=== PATIENT | female | born 1935 | race Caucasian/White ===

== ENCOUNTER 2017-12-08 10:29 | Observation (INO) | payer OTHER ==
[~2017-12-08] VITALS: Ht 160 cm; Wt 71.6 kg
[~2017-12-08 10:29] MED LIST: ASPCH81X PO; CHOL100010 PO; FAMO20TA11 PO; LEVO112T4 PO; OMEG10007 PO; PANT1TAB3 PO
[2017-12-08] MEDS ORDERED: ASPIRIN 324 MG CHEW ONE (10:51)
[2017-12-08] MEDS ORDERED: NITROGLYCERIN 2% OINTMENT 30GM TUBE EXT ONE (10:51)
[2017-12-08 11:08] LABS: BASO % 0.5 %; BASO ABS # 0.03 K/uL (0-0.2); EOS % 2.2 %; EOS ABS # 0.12 K/uL (0-0.5); HEMOGLOBIN 14.5 g/dL (12.0-16.0); IG# 0.01 K/uL (0.00-0.02); LYMPH % 31.1 %; LYMPH ABS # 1.73 K/uL (1.2-3.4); MEAN CELL VOLUME 86.6 fL (80-100); MEAN CORPUSCULAR HEMOGLOBIN 29.9 pg (25-34); MEAN CORPUSCULAR HGB CONC 34.5 g/dl (32-36); MEAN PLATELET VOLUME 9.4 fL (7.4-10.4); MONO % 6.5 %; MONO ABS # 0.36 K/uL (0.11-0.59); NEUT % 59.5 %; NEUT ABS # 3.31 K/uL (1.4-6.5); PLATELET COUNT 220 K/uL (130-400); RED CELL DISTRIBUTION WIDTH CV 13.6 % (11.5-14.5); RED CELL DISTRIBUTION WIDTH SD 43.1 fL (36.4-46.3); WHITE BLOOD COUNT 5.56 K/uL (4.8-10.8)
[2017-12-08 11:15] LABS: ALBUMIN 3.9 gm/dl (3.4-5.0); ALT/SGPT 26 U/L (12-78); AST/SGOT 18 U/L (15-37); BLOOD UREA NITROGEN 18 mg/dl (7-18); CALCIUM 9.5 mg/dl (8.5-10.1); CARBON DIOXIDE 29 mmol/L (21-32); CREATININE 0.88 mg/dl (0.60-1.20); GLUCOSE 97 mg/dl (70-99); INR 0.9 (0.9-1.1); POTASSIUM 4.4 mmol/L (3.5-5.1); PTT PATIENT 24.4 SECONDS (21.0-31.0); SODIUM 139 mmol/L (136-145)
[2017-12-08 11:26] LABS: ALKALINE PHOSPHATASE 79 U/L (45-117); CKMB 2.6 ng/ml (0.5-3.6); TOTAL PROTEIN 7.8 gm/dl (6.4-8.2)
--- NOTE | 2017-12-08 11:27 | DIAGNOSTIC IMAGING REPORT ---
CHEST ONE VIEW PORTABLE CLINICAL HISTORY: Atypical chest pain COMPARISON STUDY: 05/07/2015 FINDINGS: The heart is normal in size. There is elevation the right hemidiaphragm. There is no failure. There is no lobar consolidation. There are no pleural effusions. There are linear bilateral atelectatic changes.[ IMPRESSION: Elevation right hemidiaphragm. No evidence of acute parenchymal consolidation. No evidence of failure. Electronically signed by: Benny Mullins M.D. 12/08/2017 11:26 AM Dictated Date/Time: 12/08/2017 11:25 AM
[2017-12-08] MEDS ORDERED: AMLODIPINE BESYLATE 5 MG TAB PO ONE (13:20)
[2017-12-08] MEDS ORDERED: FAMOTIDINE 20 MG TAB PO PRN (13:30)
[2017-12-08] MEDS ORDERED: ONDANSETRON INJ 2 MG/ML 2 ML VIAL IV PRN (13:30)
[2017-12-08] MEDS ORDERED: ACETAMINOPHEN 325 MG TAB PO PRN (13:30)
[2017-12-08] MEDS ORDERED: MoRPHine SULFATE 2 MG/ML CARP IV PRN (13:30)
[2017-12-08] MEDS ORDERED: POLYETHYLENE (MIRALAX) 17 GM PACK PO PRN (13:30)
--- NOTE | 2017-12-08 13:41 | History and Physical ---
History & Physical Date & Time of Service: Dec 08, 2017 at 13:30 Chief Complaint: Chest Pains Primary Care Physician: Ron Bourne D.O. History of Present Illness Source: patient, family, clinic records, hospital records 82-year-old female with no history of heart disease, non-smoker, no history of high blood pressure presents with acute chest pain while sitting in [place] today. Patient states the chest pain is centralized with radiation to her neck and lower jaw on the left side. The pain began when she was going from a standing to sitting position and lasted about 20-30 minutes while sitting there. She states the pain was associated with sweating but was not associated with nausea, palpitations, lightheadedness, numbness, or shortness of breath. She reports infrequent substernal chest pain that is not provoked by exertion or other known cause that occurs about once a month on average and lasts only a minute at a time with spontaneous resolution. She is active exercising daily and does not have any issues of chest pain or shortness of breath with those activities. She reports in the last 2 weeks she has seen blood pressure numbers that are elevated. She first checked with her 's blood pressure cuff and noticed her blood pressure was in the 180s, She then checked at [facility] and was again in the 180s, and then was checked at an office where her blood pressure was in the 140s which she states was high for her. She has no history of high blood pressure or taking any medications for this. She otherwise has no other symptoms including headaches fevers chills cough sore throat visual changes or other issues. Past Medical/Surgical History Medical Problems: (1) GERD (gastroesophageal reflux disease) Status: Chronic (2) Hypothyroidism Status: Chronic (3) Osteoporosis Status: Chronic Family History Patient reports no known family medical history. Social History Smoking Status: Never Smoker Smokeless Tobacco Use: No Alcohol Use: none Drug Use: none Marital Status: Housing status: lives with significant other Occupational Status: retired Immunizations History of Influenza Vaccine: Yes (06/10/17) Influenza Vaccine Date: Jun 10, 2017 History of Tetanus Vaccine?: Yes Tetanus Immunization Date: Dec 23, 2007 History of Pneumococcal: Yes Pneumococcal Date: Nov 26, 2016 History of Hepatitis B Vaccine: Unknown Allergies Coded Allergies: Ergotamine (Verified Allergy, Unknown, VIOLENT HEADACHE, 12/08/17) Sulfa Drugs (Verified Allergy, Unknown, "SULFA" ALLERGY REPORTED BY [facility]/ [facility], 12/08/17) Home Medications Scheduled Aspirin (Aspirin Chewable), 81 MG PO QPM Cholecalciferol (Vitamin D), 1,000 INTER.UNIT PO QPM Levothyroxine Sodium (Levothyroxine Sodium), 1 TAB PO QAM Pantoprazole (Protonix), 40 MG PO QAM Scheduled PRN Famotidine (Pepcid), 10 MG PO QAM PRN for heartburn Review of Systems At least 10 systems were reviewed and negative except as indicated in HPI above Physical Exam Vital Signs Date Time Temp Pulse Resp B/P (MAP) Pulse Ox O2 Delivery O2 Flow Rate FiO2 12/08/17 13:06 60 12/08/17 12:56 57 20 154/92 99 Nasal Cannula 2.0 12/08/17 11:37 55 16 167/86 97 Room Air 12/08/17 11:13 99 Room Air 12/08/17 11:13 99 Room Air 12/08/17 10:53 65 16 203/77 99 Nasal Cannula 2.0 12/08/17 10:47 61 12/08/17 10:31 36.6 66 16 196/90 95 Room Air General Appearance: WD/WN, no apparent distress Head: normocephalic, atraumatic Eyes: normal inspection, PERRL, EOMI, sclerae normal, funduscopic exam normal ENT: normal ENT inspection, hearing grossly normal, pharynx normal Neck: supple, no adenopathy, no JVD, no carotid bruits, trachea midline Respiratory/Chest: lungs clear, normal breath sounds, no respiratory distress, no accessory muscle use, + pertinent finding (Tenderness to palpation along left parasternal border) Cardiovascular: regular rate, rhythm, no edema, no gallop, no murmur, normal peripheral pulses Abdomen/GI: normal bowel sounds, non tender, soft, no organomegaly Back: normal inspection Extremities/Musculoskelatal: normal inspection, no pedal edema, normal range of motion 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, no motor/sensory deficits, alert, normal mood/affect, oriented x 3 Skin: normal color, warm/dry, no rash Diagnostics Laboratory Results 12/08/17 10:40 Red Blood Count 4.85, Mean Corpuscular Volume 86.6, Mean Corpuscular Hemoglobin 29.9, Mean Corpuscular Hemoglobin Concent 34.5, Mean Platelet Volume 9.4, Neutrophils (%) (Auto) 59.5, Lymphocytes (%) (Auto) 31.1, Monocytes (%) (Auto) 6.5, Eosinophils (%) (Auto) 2.2, Basophils (%) (Auto) 0.5, Neutrophils # (Auto) 3.31, Lymphocytes # (Auto) 1.73, Monocytes # (Auto) 0.36, Eosinophils # (Auto) 0.12, Basophils # (Auto) 0.03 12/08/17 10:40 Test 12/08/17 10:40 White Blood Count 5.56 K/uL (4.8-10.8) Red Blood Count 4.85 M/uL (4.2-5.4) Hemoglobin 14.5 g/dL (12.0-16.0) Hematocrit 42.0 % (37-47) Mean Corpuscular Volume 86.6 fL (80-100) Mean Corpuscular Hemoglobin 29.9 pg (25-34) Mean Corpuscular Hemoglobin Concent 34.5 g/dl (32-36) Platelet Count 220 K/uL (130-400) Mean Platelet Volume 9.4 fL (7.4-10.4) Neutrophils (%) (Auto) 59.5 % Lymphocytes (%) (Auto) 31.1 % Monocytes (%) (Auto) 6.5 % Eosinophils (%) (Auto) 2.2 % Basophils (%) (Auto) 0.5 % Neutrophils # (Auto) 3.31 K/uL (1.4-6.5) Lymphocytes # (Auto) 1.73 K/uL (1.2-3.4) Monocytes # (Auto) 0.36 K/uL (0.11-0.59) Eosinophils # (Auto) 0.12 K/uL (0-0.5) Basophils # (Auto) 0.03 K/uL (0-0.2) RDW Standard Deviation 43.1 fL (36.4-46.3) RDW Coefficient of Variation 13.6 % (11.5-14.5) Immature Granulocyte % (Auto) 0.2 % Immature Granulocyte # (Auto) 0.01 K/uL (0.00-0.02) Prothrombin Time 9.7 SECONDS (9.0-12.0) Prothromb Time International Ratio 0.9 (0.9-1.1) Activated Partial Thromboplast Time 24.4 SECONDS (21.0-31.0) Partial Thromboplastin Ratio 0.9 Anion Gap 5.0 mmol/L (3-11) Est Creatinine Clear Calc Drug Dose 46.3 ml/min Estimated GFR () 70.4 Estimated GFR (Non- 60.8 BUN/Creatinine Ratio 20.5 (10-20) Calcium Level 9.5 mg/dl (8.5-10.1) Magnesium Level 2.1 mg/dl (1.8-2.4) Total Bilirubin 0.5 mg/dl (0.2-1) Direct Bilirubin 0.1 mg/dl (0-0.2) Aspartate Amino Transf (AST/SGOT) 18 U/L (15-37) Alanine Aminotransferase (ALT/SGPT) 26 U/L (12-78) Alkaline Phosphatase 79 U/L (45-117) Total Creatine Kinase 113 U/L (26-192) Creatine Kinase MB 2.6 ng/ml (0.5-3.6) Creatine Kinase MB Ratio 2.3 (0-3.0) Troponin I < 0.015 ng/ml (0-0.045) Total Protein 7.8 gm/dl (6.4-8.2) Albumin 3.9 gm/dl (3.4-5.0) Thyroid Stimulating Hormone (TSH) 1.950 uIu/ml (0.300-4.500) Results Past 24 Hours Test 12/08/17 10:40 Range/Units White Blood Count 5.56 4.8-10.8 K/uL Red Blood Count 4.85 4.2-5.4 M/uL Hemoglobin 14.5 12.0-16.0 g/dL Hematocrit 42.0 37-47 % Mean Corpuscular Volume 86.6 80-100 fL Mean Corpuscular Hemoglobin 29.9 25-34 pg Mean Corpuscular Hemoglobin Concent 34.5 32-36 g/dl Platelet Count 220 130-400 K/uL Mean Platelet Volume 9.4 7.4-10.4 fL Neutrophils (%) (Auto) 59.5 % Lymphocytes (%) (Auto) 31.1 % Monocytes (%) (Auto) 6.5 % Eosinophils (%) (Auto) 2.2 % Basophils (%) (Auto) 0.5 % Neutrophils # (Auto) 3.31 1.4-6.5 K/uL Lymphocytes # (Auto) 1.73 1.2-3.4 K/uL Monocytes # (Auto) 0.36 0.11-0.59 K/uL Eosinophils # (Auto) 0.12 0-0.5 K/uL Basophils # (Auto) 0.03 0-0.2 K/uL RDW Standard Deviation 43.1 36.4-46.3 fL RDW Coefficient of Variation 13.6 11.5-14.5 % Immature Granulocyte % (Auto) 0.2 % Immature Granulocyte # (Auto) 0.01 0.00-0.02 K/uL Prothrombin Time 9.7 9.0-12.0 SECONDS Prothromb Time International Ratio 0.9 0.9-1.1 Activated Partial Thromboplast Time 24.4 21.0-31.0 SECONDS Partial Thromboplastin Ratio 0.9 Sodium Level 139 136-145 mmol/L Potassium Level 4.4 3.5-5.1 mmol/L Chloride Level 105 98-107 mmol/L Carbon Dioxide Level 29 21-32 mmol/L Anion Gap 5.0 3-11 mmol/L Blood Urea Nitrogen 18 7-18 mg/dl Creatinine 0.88 0.60-1.20 mg/dl Est Creatinine Clear Calc Drug Dose 46.3 ml/min Estimated GFR () 70.4 Estimated GFR (Non- 60.8 BUN/Creatinine Ratio 20.5 10-20 Random Glucose 97 70-99 mg/dl Calcium Level 9.5 8.5-10.1 mg/dl Magnesium Level 2.1 1.8-2.4 mg/dl Total Bilirubin 0.5 0.2-1 mg/dl Direct Bilirubin 0.1 0-0.2 mg/dl Aspartate Amino Transf (AST/SGOT) 18 15-37 U/L Alanine Aminotransferase (ALT/SGPT) 26 12-78 U/L Alkaline Phosphatase 79 45-117 U/L Total Creatine Kinase 113 26-192 U/L Creatine Kinase MB 2.6 0.5-3.6 ng/ml Creatine Kinase MB Ratio 2.3 0-3.0 Troponin I < 0.015 0-0.045 ng/ml Total Protein 7.8 6.4-8.2 gm/dl Albumin 3.9 3.4-5.0 gm/dl Thyroid Stimulating Hormone (TSH) 1.950 0.300-4.500 uIu/ml Diagnostic Radiology CHEST ONE VIEW PORTABLE CLINICAL HISTORY: Atypical chest pain COMPARISON STUDY: 05/07/2015 FINDINGS: The heart is normal in size. There is elevation the right hemidiaphragm. There is no failure. There is no lobar consolidation. There are no pleural effusions. There are linear bilateral atelectatic changes.[ IMPRESSION: Elevation right hemidiaphragm. No evidence of acute parenchymal consolidation. No evidence of failure. EKG SR 63 Normal EKG Impression Assessment and Plan 82-year-old female with risk factors for CAD including new onset blood pressure and age presents with chest pain. 1. Chest pain-likely secondary to new onset hypertension. Will trend serial enzymes to rule out ACS. Will consult cardiology to assist with need for risk stratification. Will start Norvasc daily for blood pressure control. Of note patient did receive Nitropaste in the ER with improvement in her blood pressure which was originally in the 180-2 systolic. The patient's chest pain had resolved prior to arrival in the ER. She also did receive aspirin 325. Of note patient's chest is also tender to palpation on exam some musculoskeletal etiology is also a possibility. 2. Hypertension-multiple blood pressure readings reported in the 180 range, however, this has not been evaluated fully in the office. Will start Norvasc 10 mg daily for now and have close follow-up with primary care doctor on discharge. 3. Hypothyroidism-continue levothyroxine 4. GERD-continue Protonix daily with Pepcid as needed breakthrough 5. Osteoporosis DVT prophylaxis-Lovenox Full code Disposition-to telemetry [facility], DO [facility] Resuscitation Status VTE Prophylaxis Will order VTE Prophylaxis: Yes
--- NOTE | 2017-12-08 14:23 | EMERGENCY ROOM VISIT NOTE ---
History Report prepared by Khushbu: Briana Dominguez Under the Supervision of: Dr. Chema Heath M.D. 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 The patient was sitting in temple when she started having the pain. The pain radiated up in to her jaw. She felt diaphoretic with the pain. At worst, her pain was a 2/10 in severity. It lasted for 20-30 minutes before resolving on its own. She has had occasional sensations in her chest in the past, but never this pain. She is currently feeling well. She notes that her blood pressure has been high over the last couple of months. She did not take any aspirin today. Pt denies LOC, headache, fevers, chills, visual changes, neck pain, breathing difficulties, nausea, vomiting, abdominal pain, back pain, melena, hematochezia, urinary symptoms, numbness, weakness, lymphadenopathy, rash, or other complaints. Source of History: patient Onset: CERTIFIED REHABILITATION COUNSELOR Position: chest Symptom Intensity: 2/10 Timing: other (episodic) Associated Symptoms: + diaphoresis Note: Pt reports jaw pain. Review of Systems See HPI for pertinent positives and negatives. A total of ten systems were reviewed and were otherwise negative. Past Medical & Surgical Medical Problems: (1) Chest pain (2) GERD (gastroesophageal reflux disease) (3) Hypothyroidism (4) Osteoporosis Family History Patient reports no known family medical history. Social History Smoking Status: Never Smoker Marital Status: Housing Status: lives with family Occupation Status: retired Current/Historical Medications Scheduled Aspirin (Aspirin Chewable), 81 MG PO QPM Cholecalciferol (Vitamin D), 1,000 INTER.UNIT PO QPM Levothyroxine Sodium (Levothyroxine Sodium), 1 TAB PO QAM Pantoprazole (Protonix), 40 MG PO QAM Scheduled PRN Famotidine (Pepcid), 10 MG PO QAM PRN for heartburn Allergies Coded Allergies: Ergotamine (Verified Allergy, Unknown, VIOLENT HEADACHE, 12/08/17) Sulfa Drugs (Verified Allergy, Unknown, "SULFA" ALLERGY REPORTED BY [facility]/ [facility], 12/08/17) Physical Exam Vital Signs Date Time Temp Pulse Resp B/P (MAP) Pulse Ox O2 Delivery O2 Flow Rate FiO2 12/08/17 13:06 60 12/08/17 12:56 57 20 154/92 99 Nasal Cannula 2.0 12/08/17 11:37 55 16 167/86 97 Room Air 12/08/17 11:13 99 Room Air 12/08/17 11:13 99 Room Air 12/08/17 10:53 65 16 203/77 99 Nasal Cannula 2.0 12/08/17 10:47 61 12/08/17 10:31 36.6 66 16 196/90 95 Room Air Physical Exam GENERAL: Awake, alert, well-appearing, in no distress HENT: Normocephalic, atraumatic. Oropharynx unremarkable. EYES: Normal conjunctiva. Sclera non-icteric. NECK: Supple. No nuchal rigidity. FROM. No masses. RESPIRATORY: Clear to auscultation. No wheezes. No rales. Normal respiratory effort. CARDIAC: Normal rate. Normal rhythm. No murmurs. No rubs. Extremities warm and well perfused. Pulses equal. No JVD. GI: Soft, non-distended. No tenderness to palpation. No rebound or guarding. No masses. RECTAL: Deferred. MUSCULOSKELETAL: Atraumatic. Chest examination reveals no tenderness. The back is symmetrical on inspection without obvious abnormality. There is no CVA tenderness to palpation. No joint edema. LOWER EXTREMITIES: Calves are equal size bilaterally and non-tender. No edema. No discoloration. NEURO: Normal sensorium. No sensory or motor deficits noted. SKIN: No rash or jaundice noted. Medical Decision & Procedures ER Provider Diagnostic Interpretation: Radiology results as stated below per my review and radiologist interpretation: CHEST ONE VIEW PORTABLE CLINICAL HISTORY: Atypical chest pain COMPARISON STUDY: 05/07/2015 FINDINGS: The heart is normal in size. There is elevation the right hemidiaphragm. There is no failure. There is no lobar consolidation. There are no pleural effusions. There are linear bilateral atelectatic changes.[ IMPRESSION: Elevation right hemidiaphragm. No evidence of acute parenchymal consolidation. No evidence of failure. Electronically signed by: Benny Mullins M.D. 12/08/2017 11:26 AM Dictated Date/Time: 12/08/2017 11:25 AM Laboratory Results 12/08/17 10:40 Red Blood Count 4.85, Mean Corpuscular Volume 86.6, Mean Corpuscular Hemoglobin 29.9, Mean Corpuscular Hemoglobin Concent 34.5, Mean Platelet Volume 9.4, Neutrophils (%) (Auto) 59.5, Lymphocytes (%) (Auto) 31.1, Monocytes (%) (Auto) 6.5, Eosinophils (%) (Auto) 2.2, Basophils (%) (Auto) 0.5, Neutrophils # (Auto) 3.31, Lymphocytes # (Auto) 1.73, Monocytes # (Auto) 0.36, Eosinophils # (Auto) 0.12, Basophils # (Auto) 0.03 12/08/17 10:40 Test 12/08/17 10:40 White Blood Count 5.56 K/uL (4.8-10.8) Red Blood Count 4.85 M/uL (4.2-5.4) Hemoglobin 14.5 g/dL (12.0-16.0) Hematocrit 42.0 % (37-47) Mean Corpuscular Volume 86.6 fL (80-100) Mean Corpuscular Hemoglobin 29.9 pg (25-34) Mean Corpuscular Hemoglobin Concent 34.5 g/dl (32-36) Platelet Count 220 K/uL (130-400) Mean Platelet Volume 9.4 fL (7.4-10.4) Neutrophils (%) (Auto) 59.5 % Lymphocytes (%) (Auto) 31.1 % Monocytes (%) (Auto) 6.5 % Eosinophils (%) (Auto) 2.2 % Basophils (%) (Auto) 0.5 % Neutrophils # (Auto) 3.31 K/uL (1.4-6.5) Lymphocytes # (Auto) 1.73 K/uL (1.2-3.4) Monocytes # (Auto) 0.36 K/uL (0.11-0.59) Eosinophils # (Auto) 0.12 K/uL (0-0.5) Basophils # (Auto) 0.03 K/uL (0-0.2) RDW Standard Deviation 43.1 fL (36.4-46.3) RDW Coefficient of Variation 13.6 % (11.5-14.5) Immature Granulocyte % (Auto) 0.2 % Immature Granulocyte # (Auto) 0.01 K/uL (0.00-0.02) Prothrombin Time 9.7 SECONDS (9.0-12.0) Prothromb Time International Ratio 0.9 (0.9-1.1) Activated Partial Thromboplast Time 24.4 SECONDS (21.0-31.0) Partial Thromboplastin Ratio 0.9 Anion Gap 5.0 mmol/L (3-11) Est Creatinine Clear Calc Drug Dose 46.3 ml/min Estimated GFR () 70.4 Estimated GFR (Non- 60.8 BUN/Creatinine Ratio 20.5 (10-20) Calcium Level 9.5 mg/dl (8.5-10.1) Magnesium Level 2.1 mg/dl (1.8-2.4) Total Bilirubin 0.5 mg/dl (0.2-1) Direct Bilirubin 0.1 mg/dl (0-0.2) Aspartate Amino Transf (AST/SGOT) 18 U/L (15-37) Alanine Aminotransferase (ALT/SGPT) 26 U/L (12-78) Alkaline Phosphatase 79 U/L (45-117) Total Creatine Kinase 113 U/L (26-192) Creatine Kinase MB 2.6 ng/ml (0.5-3.6) Creatine Kinase MB Ratio 2.3 (0-3.0) Troponin I < 0.015 ng/ml (0-0.045) Total Protein 7.8 gm/dl (6.4-8.2) Albumin 3.9 gm/dl (3.4-5.0) Thyroid Stimulating Hormone (TSH) 1.950 uIu/ml (0.300-4.500) Laboratory results reviewed by me Medications Administered Medications (Trade) Dose Ordered Sig/Brad Route Start Time Stop Time Status Last Admin Dose Admin Nitroglycerin (Nitroglycerin 2% Oint) 18 inch STK-MED ONCE EXT 12/08/17 10:51 12/08/17 10:52 DC 12/08/17 12:18 1 INCH Aspirin (Aspirin Chew) 324 mg STK-MED ONCE .ROUTE 12/08/17 10:51 12/08/17 10:52 DC 12/08/17 12:18 324 MG ECG Per My Interpretation Indication: chest pain Rate (beats per minute): 63 Rhythm: sinus rhythm Findings: nonspecific-ST abn, no ectopy, other (LVH) ED Course 1051: Aspirin 324 mg PO, Nitroglycerin 1 inch EXT. 1054: The patient was evaluated in room A10. A complete history and physical exam was performed. 1233: Upon reexamination, the patient was pain free. I discussed the test results and treatment plan with her. The patient will be evaluated for further management. 1251: I discussed the patient's case with Dylan Yousif. The patient will be evaluated for further treatment and disposition. Medical Decision Prior records/ancillary studies reviewed. Triage Nursing notes reviewed and agree them. Additional history obtained from the family. The patient's history was concerning for chest pain. Differential diagnosis: Etiologies such as cardiac ischemia, aortic dissection, pulmonary embolism, pneumonia, pneumothorax, musculoskeletal, infections, pericarditis, myocarditis , esophageal rupture, gastrointestinal, as well as others were entertained. Physical examination: As above. ER treatment provided: Nitropaste Oral aspirin On reassessment the patient felt better. Diagnostic interpretation by me: The electrocardiogram was negative for pathologic change. The labs revealed an unremarkable CBC and chemistry panel. Cardiac markers negative. Imaging studies: Chest x-ray as above The patient had a concerning presentation for possible cardiac chest pain. Further management in the hospital will be necessary. Consultation: A consultation was placed with the hospitalist. The case was discussed and diagnostics were reviewed. The patient was evaluated in the ER for further treatment. Medication Reconcilliation Current Medication List: was personally reviewed by me Blood Pressure Screening Patient's blood pressure: Elevated blood pressure Referred to hospitalist. Consults Time Called: [phone] Consulting Physician: Dylan Yousifist Returned Call: [phone] Discussed the patient's case. The patient will be evaluated for further treatment and disposition. Impression Primary Impression: Substernal chest pain Scribe Attestation The scribe's documentation has been prepared under my direction and personally reviewed by me in its entirety. I confirm that the note above accurately reflects all work, treatment, procedures, and medical decision making performed by me. Departure Information Dispostion Being Evaluated By Hospitalist Referrals Ron Bourne D.O. (PCP) Patient Instructions My [facility]
[2017-12-08] MEDS ORDERED: ATORVASTATIN 40 MG TAB PO ONE (14:26)
[2017-12-08 14:30] VITALS: BP 145/92; PULSE 57; TEMP 36.5; O2SAT 96; Ht 160 cm; Wt 71.6 kg
[2017-12-08] MEDS ORDERED: IV FLUIDS COMPLETED PRN (14:45)
--- NOTE | 2017-12-08 15:19 | Cardiology Consultation ---
Cardiology Consultation Date of Service Dec 08, 2017. Cardiology Consultation Indication: Consultation for chest pain History: This is an 82-year-old female with minimal past medical history. At one time she was on a statin but stopped it due to muscle aches. Recently she has noted some hypertension. She was going to start treatment with her primary care physician. Today she was at latter day and developed chest discomfort which lasted through most the ceremony. She is brought to the emergency department by her family where she has been admitted. She has no current complaints. She denies chest pain or shortness of breath. She denies dizziness or lightheadedness. She has had no recent activity related chest pain or shortness of breath. Allergies: Ergotamine and sulfa drugs Reported Home Medications Medications Dose Route/Sig Max Daily Dose Days Date Category Dose Instructions Pepcid (Famotidine) 20 Mg Tab 10 Mg PO QAM PRN 03/28/16 Reported Protonix (Pantoprazole) 40 Mg Tab 40 Mg PO QAM 03/28/16 Reported "DOESN'T TAKE EVERY DAY" Aspirin Chewable (Aspirin) 81 Mg Chew 81 Mg PO QPM 03/28/16 Reported Levothyroxine Sodium 112 Mcg Tab 1 Tab PO QAM 90 03/28/16 Reported Vitamin D (Cholecalciferol) 1,000 Inter.unit Tab 1,000 Inter.unit PO QPM 05/07/15 Reported Past medical history: As outlined above the patient has minimal past medical history. She is noticed some increased blood pressure recently and was to start antihypertensives. She was treated for cholesterol at one time but developed muscle aches to statins. She is treated for hypothyroidism. She has no prior history of heart disease, diabetes, strokes or kidney disease. Social history: The patient lives with her . She is a non-smoker. Family medical history: Noncontributory General: The patient denies weight change, night sweats, fever, chills. Head: The patient denies headache and prior head trauma. Cardiovascular: The patient denies chest pain or chest discomfort, dyspnea on exertion, palpitations, PND, orthopnea, edema, spontaneous shortness of breath, syncope and near syncope. Pulmonary: The patient denies cough, wheeze, pleurisy, hemoptysis, sputum, and excessive snoring. Gastrointestinal: The patient denies nausea, vomiting, diarrhea, constipation, bloating, hematemesis, hematochezia, and abdominal pain. Skin: The patient denies diaphoresis and rash. Musculoskeletal: The patient denies joint pain, joint swelling, myalgia, back pain, neck pain and prior injuries. Neurological: The patient denies prior stroke and seizures Vital Signs Past 12 Hours Date Time Temp Pulse Resp B/P (MAP) Pulse Ox O2 Delivery O2 Flow Rate FiO2 12/08/17 14:30 36.5 57 16 145/92 96 Room Air 12/08/17 13:06 60 12/08/17 12:56 57 20 154/92 99 Nasal Cannula 2.0 12/08/17 11:37 55 16 167/86 97 Room Air 12/08/17 11:13 99 Room Air 12/08/17 11:13 99 Room Air 12/08/17 10:53 65 16 203/77 99 Nasal Cannula 2.0 12/08/17 10:47 61 12/08/17 10:31 36.6 66 16 196/90 95 Room Air General Appearance: Alert and Oriented x3. NAD. Head: Normocephalic Atraumatic. Eyes: PERRLA, EOMI, conjunctiva and sclera clear Neck: Supple. No carotid bruits noted. No JVD. No HJD. Respiratory: Breath sounds clear to auscultation bilaterally. No w/r/r. Cardiovascular: Reg rate and rhythm. S1 and S2 noted. No murmurs, rubs, gallops. PMI non displace. Abdomen: Normal bowel sounds, soft nontender. no abdominal bruits. Extremities: No edema, no clubbing or cyanosis. distal pulses 2/4 bilaterally. Neuro: No focal deficits. Psychiatric: Normal affect. Last 24 Hours Test 12/08/17 10:40 White Blood Count 5.56 K/uL Red Blood Count 4.85 M/uL Hemoglobin 14.5 g/dL Hematocrit 42.0 % Mean Corpuscular Volume 86.6 fL Mean Corpuscular Hemoglobin 29.9 pg Mean Corpuscular Hemoglobin Concent 34.5 g/dl Platelet Count 220 K/uL Mean Platelet Volume 9.4 fL Neutrophils (%) (Auto) 59.5 % Lymphocytes (%) (Auto) 31.1 % Monocytes (%) (Auto) 6.5 % Eosinophils (%) (Auto) 2.2 % Basophils (%) (Auto) 0.5 % Neutrophils # (Auto) 3.31 K/uL Lymphocytes # (Auto) 1.73 K/uL Monocytes # (Auto) 0.36 K/uL Eosinophils # (Auto) 0.12 K/uL Basophils # (Auto) 0.03 K/uL RDW Standard Deviation 43.1 fL RDW Coefficient of Variation 13.6 % Immature Granulocyte % (Auto) 0.2 % Immature Granulocyte # (Auto) 0.01 K/uL Prothrombin Time 9.7 SECONDS Prothromb Time International Ratio 0.9 Activated Partial Thromboplast Time 24.4 SECONDS Partial Thromboplastin Ratio 0.9 Sodium Level 139 mmol/L Potassium Level 4.4 mmol/L Chloride Level 105 mmol/L Carbon Dioxide Level 29 mmol/L Anion Gap 5.0 mmol/L Blood Urea Nitrogen 18 mg/dl Creatinine 0.88 mg/dl Est Creatinine Clear Calc Drug Dose 46.3 ml/min Estimated GFR () 70.4 Estimated GFR (Non- 60.8 BUN/Creatinine Ratio 20.5 Random Glucose 97 mg/dl Calcium Level 9.5 mg/dl Magnesium Level 2.1 mg/dl Total Bilirubin 0.5 mg/dl Direct Bilirubin 0.1 mg/dl Aspartate Amino Transf (AST/SGOT) 18 U/L Alanine Aminotransferase (ALT/SGPT) 26 U/L Alkaline Phosphatase 79 U/L Total Creatine Kinase 113 U/L Creatine Kinase MB 2.6 ng/ml Creatine Kinase MB Ratio 2.3 Troponin I < 0.015 ng/ml Total Protein 7.8 gm/dl Albumin 3.9 gm/dl Thyroid Stimulating Hormone (TSH) 1.950 uIu/ml Impression/recommendations: This is an 82-year-old female who was in a good state of health and has minimal past medical history. She had some chest pain in latter day today. It lasted for several minutes and then resolved on its own. Her first set of cardiac markers and EKGs are normal. She is now admitted for observation. Should have additional cardiac markers drawn. If those markers are completely negative and she has no additional chest pain we could discharge her and refer her for an outpatient stress test. We will wait for the additional labs.
[2017-12-08 15:25] VITALS: BP 135/61; PULSE 68; TEMP 36.4; O2SAT 93
[2017-12-08 18:50] VITALS: BP 151/74; PULSE 60; TEMP 36.7; O2SAT 94
[2017-12-08] MEDS ORDERED: PNEUMOCOCCAL POLYSACCHARIDES 25 MCG/0.5 ML VIAL/SYR IM. ONE (20:00)
[2017-12-08] MEDS ORDERED: PNEUMOCOCCAL ADMINISTRATION CHARGE ONE (20:00)
[2017-12-08] MEDS ORDERED: CHOLECALCIFEROL 1000 INTER.UNIT TAB PO SCH (21:00)
[2017-12-09 00:01] VITALS: BP 153/77; PULSE 65; TEMP 36.9; O2SAT 93
[2017-12-09 04:07] VITALS: BP 142/72; PULSE 63; TEMP 36.8; O2SAT 94
[2017-12-09] MEDS ORDERED: LEVOTHYROXINE 112 MCG TAB PO SCH (06:00)
[2017-12-09 07:44] VITALS: BP 133/69; PULSE 63; TEMP 36.9; O2SAT 92
[2017-12-09] MEDS ORDERED: ENOXAPARIN 40 MG/0.4 ML SYR SC SCH (09:00)
[2017-12-09] MEDS ORDERED: ASPIRIN 81 MG ECTAB PO SCH (09:00)
[2017-12-09] MEDS ORDERED: PANTOprazole SOD 40 MG TAB PO SCH (09:00)
[2017-12-09] MEDS ORDERED: AMLODIPINE BESYLATE 5 MG TAB PO SCH (09:00)
--- NOTE | 2017-12-09 10:46 | Cardiology Follow-Up ---
Subjective Subjective Date of Service: Dec 09, 2017. Pt evaluation today including: conversation w/ patient, conversation w/ family , physical exam, chart review, review of studies, review of inpatient medication list Additional Details: The patient had an uneventful night. No additional chest pain. Cardiac markers have been negative and her EKG shows no acute changes. At this point we would recommend continued treatment of her hypertension and an outpatient exercise stress test. Problem List Medical Problems: (1) Substernal chest pain Status: Acute Objective Vital Signs Last Vital Signs Documentation Date Time Temp Pulse Resp B/P (MAP) Pulse Ox O2 Delivery O2 Flow Rate FiO2 12/09/17 07:44 36.9 63 16 133/69 (90) 92 Room Air 12/08/17 12:56 2.0 Physical Exam: General Appearance: no apparent distress ENT: normal ENT inspection Neck: thyroid normal, no JVD, no carotid bruits Respiratory/Chest: lungs clear, normal breath sounds Cardiovascular: regular rate, rhythm, no JVD, no murmur Abdomen: normal bowel sounds, non tender, no organomegaly Extremities: normal range of motion, non-tender, no pedal edema Neurologic/Psychiatric: clamp remover II-XII nml as tested, no motor/sensory deficits, oriented x 3 Skin: normal color, warm/dry, no rash Lymphatic: no adenopathy Assessment and Plan Impression: 1. Chest pain 2 hypertension Recommendations: The patient has had no additional chest pain. Cardiac markers have been negative and her EKG does not show any acute changes. Her blood pressure is better controlled today. I would recommend discharged with an outpatient stress test. I will arrange for the outpatient stress test. Medications: Current Inpatient Medications Medications (Trade) Dose Ordered Sig/Brad Route Start Time Stop Time Status Last Admin Dose Admin Enoxaparin Sodium (Lovenox Inj) 40 mg QAM SC 12/09/17 09:00 01/08/18 08:59 12/09/17 07:57 40 MG Acetaminophen (Tylenol Tab) 650 mg Q4H PRN PO 12/08/17 13:30 01/07/18 13:29 Ondansetron HCl (Zofran Inj) 4 mg Q6H PRN IV 12/08/17 13:30 01/07/18 13:29 Morphine Sulfate (MoRPHine SULFATE INJ) 2 mg Q30M PRN IV 12/08/17 13:30 12/22/17 13:29 Aspirin (Ecotrin Tab) 81 mg QAM PO 12/09/17 09:00 01/08/18 08:59 12/09/17 07:58 81 MG Polyethylene (Miralax Powder Packet) 17 gm DAILY PRN PO 12/08/17 13:30 01/07/18 13:29 Amlodipine Besylate (Norvasc Tab) 10 mg DAILY PO 12/09/17 09:00 01/08/18 08:59 12/09/17 09:48 10 MG Cholecalciferol (Vitamin D Tab) 1,000 inter.unit QPM PO 12/08/17 21:00 01/07/18 20:59 12/08/17 20:49 1,000 INTER.UNIT Famotidine (Pepcid Tab) 10 mg QAM PRN PO 12/08/17 13:30 01/07/18 13:29 Levothyroxine Sodium (Synthroid Tab) 112 mcg DAILYBB PO 12/09/17 06:00 01/08/18 05:59 12/09/17 05:34 112 MCG Pantoprazole Sodium (Protonix Tab) 40 mg QAM PO 12/09/17 09:00 01/08/18 08:59 12/09/17 07:58 40 MG Miscellaneous (Iv Fluids Completed) 1 ea PRN PRN N/A 12/08/17 14:45 12/08/18 14:44 Lab Results: Last 24 Hours Test 12/08/17 16:17 12/08/17 19:27 12/08/17 22:34 12/09/17 05:29 Troponin I < 0.015 ng/ml < 0.015 ng/ml Urine Color YELLOW Urine Appearance CLEAR Urine pH 7.5 Urine Specific Hooper 1.020 Urine Protein NEG Urine Glucose (UA) NEG Urine Ketones NEG Urine Occult Blood NEG Urine Nitrite NEG Urine Bilirubin NEG Urine Urobilinogen NEG Urine Leukocyte Esterase NEG Triglycerides Level 156 mg/dl Cholesterol Level 189 mg/dl HDL Cholesterol 44 mg/dl LDL Cholesterol, Calculated 114 mg/dl VLDL Cholesterol, Calculated 31 mg/dl Cholesterol/HDL Ratio 4.3
[2017-12-09 11:21] VITALS: BP 145/76; PULSE 60; TEMP 37.1; O2SAT 93
[2017-12-09] MEDS ORDERED: AMLO10TA2 PO (17:27)
--- NOTE | 2017-12-09 17:31 | EXERCISE STRESS ECHO ---
*NOTICE TO RECEIVING [employer]Y This information is strictly Confidential and protected under [place] law. [place] law prohibits you from making any further disclosure of this information unless further disclosure is expressly permitted by the written consent of the person to whom it pertains or is authorized by law. A general authorization for the release of medical or other information is not sufficient for this purpose. Hospital accepts no responsibility if the information is made available to any other person, INCLUDING THE PATIENT. Interpretation Summary * Name: DEISY SY Study Date: 12/09/2017 01:49 PM BP: 147/61 mmHg * Patient Location: C.2E\S\E202\S\1 HR: 82 * : 1935 (M/d/yyyy) Gender: Female Height: 63 in * Age: 82 yrs Ethnicity: CA Weight: 157 lb * Ordering Physician: Girma Martinez * Referring Physician: Self, Referred * Performed By: Katherine Hoffmann RDCS * * Reason For Study: Chest pain * BSA: 1.7 m2 * STRESS STUDY: Normal exercise stress echocardiogram. No echocardiographic or ECG evidence of myocardial ischemia having achieved heart rate adequate for diagnostic purposes. Procedure Details * ECHOEX, CPT #47157 * ECHO DOPPLER, CPT #[id number] * ECHO COLOR FLOW, CPT #[id number] Left Ventricle * The left ventricle is normal in size. * There is normal left ventricular wall thickness. * Ejection Fraction = >70 %. * Left ventricular systolic function is normal. * The left ventricular wall motion is normal. Right Ventricle * The right ventricle is normal size. * The right ventricular systolic function is normal. Atria * The left atrial size is normal. * Right atrial size is normal. Mitral Valve * The mitral valve is normal in structure and function. Tricuspid Valve * The tricuspid valve is normal in structure and function. Aortic Valve * The aortic valve is normal in structure and function. Pulmonic Valve * The pulmonic valve is not well seen, but is grossly normal. Great Vessels * The aortic root and proximal ascending aorta are normal sized. Pericardium * There is no pericardial effusion. Stress Parameters * Baseline ECG was essentially normal. No symptoms were noted. * Stress ECG: No ST changes. No arrhythmias. * No arrhythmia were noted with stress. * The stress portion of this study was personally supervised by the undersigned interpreting physician. * Rest heart rate was '82' BPM. * Rest blood pressure was '147/61' * Maximum heart rate achieved was 127 bpm. * Maximum heart rate was 92 % of maximum age-predicted heart rate. * Maximum blood pressure was '208/69' * Total exercise time was '3:41' * Maximum exercise MET level achieved was '5.40' METS * Maximum treadmill speed was '2.50' miles per hour. * Maximum treadmill elevation was '12.00'% grade. * Exercise was terminated due to 'achieving target heart rate' MMode 2D Measurements and Calculations IVSd 0.95 cm LVIDd 3.9 cm LVIDs 2.3 cm LVPWd 1.1 cm IVS/LVPW 0.89 FS 40.6 % EDV(Teich) 66.0 ml ESV(Teich) 18.5 ml EF(Teich) 72.0 % EDV(cubed) 59.5 ml ESV(cubed) 12.5 ml EF(cubed) 79.0 % LV mass(C)d 123.8 grams LV mass(C)dI 71.0 grams/m\S\2 SV(Teich) 47.5 ml SI(Teich) 27.2 ml/m\S\2 SV(cubed) 47.0 ml SI(cubed) 26.9 ml/m\S\2 Ao root diam 2.7 cm Ao root area 5.5 cm\S\2 ACS 1.5 cm LA dimension 3.3 cm asc Aorta Diam 3.0 cm LA/Ao 1.2 LVOT diam 1.8 cm LVOT area 2.6 cm\S\2 LVAd ap4 18.0 cm\S\2 LVLd ap4 6.4 cm EDV(MOD-sp4) 41.3 ml EDV(sp4-el) 42.7 ml LVAs ap4 8.2 cm\S\2 LVLs ap4 5.2 cm ESV(MOD-sp4) 11.4 ml ESV(sp4-el) 10.8 ml EF(MOD-sp4) 72.3 % EF(sp4-el) 74.8 % LVAd ap2 18.2 cm\S\2 LVLd ap2 6.5 cm EDV(MOD-sp2) 43.5 ml EDV(sp2-el) 43.3 ml LVAs ap2 8.5 cm\S\2 LVLs ap2 5.5 cm ESV(MOD-sp2) 11.5 ml ESV(sp2-el) 11.1 ml EF(MOD-sp2) 73.6 % EF(sp2-el) 74.4 % LVLd %diff 0.49 % EDV(MOD-bp) 42.5 ml LVLs %diff 4.9 % ESV(MOD-bp) 11.4 ml EF(MOD-bp) 73.2 % SV(MOD-sp4) 29.9 ml SI(MOD-sp4) 17.1 ml/m\S\2 SV(MOD-sp2) 32.0 ml SI(MOD-sp2) 18.4 ml/m\S\2 SV(MOD-bp) 31.1 ml SI(MOD-bp) 17.8 ml/m\S\2 SV(sp4-el) 31.9 ml SI(sp4-el) 18.3 ml/m\S\2 SV(sp2-el) 32.2 ml SI(sp2-el) 18.5 ml/m\S\2 Doppler Measurements and Calculations MV E max [place] 66.9 cm/sec MV A max [place] 105.7 cm/sec MV E/A 0.63 MV dec time 0.19 sec Ao V2 max 106.6 cm/sec Ao max PG 4.5 mmHg Ao max PG (full) 0.08 mmHg SHERWIN(V,A) 2.6 cm\S\2 SHERWIN(V,D) 2.6 cm\S\2 LV V1 max PG 4.5 mmHg LV V1 max 105.7 cm/sec PA V2 max 96.3 cm/sec PA max PG 3.7 mmHg PA acc slope 587.2 cm/sec\S\2 PA acc time 0.11 sec PI max [place] 127.1 cm/sec PI max PG 6.5 mmHg PI dec slope 82.5 cm/sec\S\2 PI P1/2t 451.5 msec TR max am[place] 190.0 cm/sec PA pr(Accel) 29.0 mmHg
--- NOTE | 2017-12-09 17:32 | Discharge Summary ---
Discharge Summary Date of Service Dec 09, 2017. Discharge Summary Admission Date: Dec 08, 2017 at 12:55 Discharge Date: Dec 09, 2017 Discharge Disposition: Home Principal Diagnosis: 1. Chest pain-resolved 2. Hypertension 3. Hypothyroidism 4. GERD 5. Osteoporosis Procedures: Stress echocardiogram. Vaccinations: Declines Pneumovax Consultations: Cardiology Dr. Girma Martinez Pending Studies/Follow-Up: see instructions below. Medication Reconciliation New Medications: Amlodipine Besylate (Norvasc) 10 Mg Tab 1 TAB PO DAILY for 30 Days, #30 TAB 1 Refill Continued Medications: Aspirin (Aspirin Chewable) 81 Mg Chew 81 MG PO QPM Cholecalciferol (Vitamin D) 1,000 Inter.unit Tab 1000 INTER.UNIT PO QPM, TAB Famotidine (Pepcid) 20 Mg Tab 10 MG PO QAM PRN for heartburn, TAB Levothyroxine Sodium (Levothyroxine Sodium) 112 Mcg Tab 1 TAB PO QAM for 90 Days, #90 TAB 3 Refills Pantoprazole (Protonix) 40 Mg Tab 40 MG PO QAM, #30 TAB "DOESN'T TAKE EVERY DAY" Admission Information HPI (per Admitting provider): 82-year-old female with no history of heart disease, non-smoker, no history of high blood pressure presents with acute chest pain while sitting in [place] today. Patient states the chest pain is centralized with radiation to her neck and lower jaw on the left side. The pain began when she was going from a standing to sitting position and lasted about 20-30 minutes while sitting there. She states the pain was associated with sweating but was not associated with nausea, palpitations, lightheadedness, numbness, or shortness of breath. She reports infrequent substernal chest pain that is not provoked by exertion or other known cause that occurs about once a month on average and lasts only a minute at a time with spontaneous resolution. She is active exercising daily and does not have any issues of chest pain or shortness of breath with those activities. She reports in the last 2 weeks she has seen blood pressure numbers that are elevated. She first checked with her 's blood pressure cuff and noticed her blood pressure was in the 180s, She then checked at [facility] and was again in the 180s, and then was checked at an office where her blood pressure was in the 140s which she states was high for her. She has no history of high blood pressure or taking any medications for this. She otherwise has no other symptoms including headaches fevers chills cough sore throat visual changes or other issues. Physical Exam (per Admitting): General Appearance: WD/WN, no apparent distress Head: normocephalic, atraumatic Eyes: normal inspection, PERRL, EOMI, sclerae normal, funduscopic exam normal ENT: normal ENT inspection, hearing grossly normal, pharynx normal Neck: supple, no adenopathy, no JVD, no carotid bruits, trachea midline Respiratory/Chest: lungs clear, normal breath sounds, no respiratory distress, no accessory muscle use, + pertinent finding (Tenderness to palpation along left parasternal border) Cardiovascular: regular rate, rhythm, no edema, no gallop, no murmur, normal peripheral pulses Abdomen/GI: normal bowel sounds, non tender, soft, no organomegaly Back: normal inspection Extremities/Musculoskelatal: normal inspection, no pedal edema, normal range of motion Neurologic/Psych: making department preparer II-XII nml as tested, no motor/sensory deficits, alert , normal mood/affect, oriented x 3 Skin: normal color, warm/dry, no rash Hospital Course 82-year-old female with no history of heart disease presents with chest pain. She was noted to have elevated blood pressure on arrival to the ER and was started on amlodipine therapy. She did note multiple episodes of elevated blood pressure as an outpatient prior to this. She was admitted to the hospital and monitored on telemetry with no acute events. Her blood pressure came down with Nitropaste given in the ER and amlodipine continued on the floor. Serial cardiac enzymes were trended and negative. Cardiology was consulted. She underwent a treadmill stress echocardiogram exercising 3 minutes and 41 seconds achieving 5.40 METS. The test was normal with no echocardiographic or EKG evidence of myocardial ischemia having achieved heart rate that was adequate for diagnostic purposes. Physical exam on day of discharge revealed the patient mentating and ambulating at baseline was tolerating p.o. Heart and lung sounds were normal and she had no edema. She was asymptomatic. She was sent home in stable condition. Total time spent on discharge = 60 minutes This includes examination of the patient, discharge planning, medication reconciliation, and communication with other providers. Discharge Instructions [address] [address] Discharge Medical Patient Name: Josie Vargas Unit Number: [id number] Date of : 1935 Patient Status: Admitted Inpatient (obs) Attending Doctor: Arlen Lux DO DI: Medical v5 Discharge Instructions Date of Service Dec 09, 2017. Admission Reason for Admission: Chest Pain Discharge Discharge Diagnosis / Problem: Chest pain, HTN Discharge Goals Goal(s): Decrease discomfort, Prevent Disease Progression Activity Recommendations Activity Limitations: per Instructions/Follow-up section . Instructions / Follow-Up Instructions / Follow-Up Please take all medications as instructed. You will need close follow-up on your blood pressure. We have scheduled a follow-up appointment for you to see Dr. Bourne on 12/16 at 2:45pm for follow-up of this hospitalization. Please note that you were originally scheduled to see him this date earlier in the day and that appointment time was cancelled. This time allowed a longer time slot. It was a pleasure taking care of you! Call if you have any questions or problems. You can reach a [facility] hospitalist on duty at [facility] 24 hours a day by calling [phone]. Take care of yourself. Arlen Lux DO [facility] Hospitalist Current Hospital Diet Patient's current hospital diet: AHA Diet (Heart Healthy) Discharge Diet Recommended Diet: AHA Diet (Heart Healthy) Procedures Procedures Performed: Stress echocardiogram Pending Studies Studies pending at discharge: no Laboratory Results Lipid Panel Test 12/09/17 05:29 Range/Units Triglycerides Level 156 H 0-150 mg/dl Cholesterol Level 189 0-200 mg/dl HDL Cholesterol 44 mg/dl Cholesterol/HDL Ratio 4.3 LDL Cholesterol, Calculated 114 mg/dl Medical Emergencies . Who to Call and When: Medical Emergencies: If at any time you feel your situation is an emergency, please call 911 immediately. . Non-Emergent Contact Non-Emergency issues call your: Primary Care Provider . . "Provider Documentation" section prepared by Arlen Lux. . Additional Copies To Ron Bourne D.OEdie
[2017-12-09 17:59] VITALS: BP 145/76; PULSE 60; TEMP 37.1; O2SAT 93
== END 2017-12-09 18:20 | disposition home or self-care (01) ==
LOC: C.EDB 10:30 → C.2E 12:55 → ENRESERV 13:12
PROVIDERS: ADMIT Hospitalist; ATTEND Hospitalist
DX: R07.2 Precordial pain (principal); I10 Essential (primary) hypertension; E03.9 Hypothyroidism, unspecified; K21.9 Gastro-esophageal reflux disease without esophagitis; M81.0 Age-related osteoporosis without current pathological fracture; Z79.82 Long term (current) use of aspirin; Z88.2 Allergy status to sulfonamides

== ENCOUNTER 2017-12-13 06:46 | Emergency (ER) | payer OTHER ==
[~2017-12-13] VITALS: Ht 160 cm; Wt 72.9 kg
[~2017-12-13 06:46] MED LIST changes: +AMLO10TA2 PO; -OMEG10007 PO
[2017-12-13 06:50] VITALS: TEMP 36.6; Ht 160 cm; Wt 72.9 kg
[2017-12-13 07:21] VITALS: O2SAT 95
[2017-12-13 07:24] LABS: BASO % 0.8 %; BASO ABS # 0.04 K/uL (0-0.2); EOS % 2.9 %; EOS ABS # 0.15 K/uL (0-0.5); HEMATOCRIT 39.9 % (37-47); HEMOGLOBIN 13.9 g/dL (12.0-16.0); IG# 0.01 K/uL (0.00-0.02); LYMPH % 29.8 %; LYMPH ABS # 1.57 K/uL (1.2-3.4); MEAN CELL VOLUME 84.7 fL (80-100); MEAN CORPUSCULAR HEMOGLOBIN 29.5 pg (25-34); MEAN CORPUSCULAR HGB CONC 34.8 g/dl (32-36); MEAN PLATELET VOLUME 9.5 fL (7.4-10.4); MONO ABS # 0.42 K/uL (0.11-0.59); NEUT % 58.3 %; NEUT ABS # 3.07 K/uL (1.4-6.5); PLATELET COUNT 218 K/uL (130-400); RED CELL DISTRIBUTION WIDTH CV 13.5 % (11.5-14.5); RED CELL DISTRIBUTION WIDTH SD 41.2 fL (36.4-46.3); WHITE BLOOD COUNT 5.26 K/uL (4.8-10.8)
[2017-12-13] MEDS ORDERED: ASPI81TA28 PO ×2 (07:32→07:33)
[2017-12-13] MEDS ORDERED: ASPI81CH2 PO (07:33)
[2017-12-13 07:36] LABS: INR 0.9 (0.9-1.1); PTT PATIENT 25.3 SECONDS (21.0-31.0)
[2017-12-13] MEDS ORDERED: NRV/10 PO (07:39)
[2017-12-13 07:41] LABS: ALT/SGPT 28 U/L (12-78); AST/SGOT 18 U/L (15-37); BLOOD UREA NITROGEN 17 mg/dl (7-18); CALCIUM 9.5 mg/dl (8.5-10.1); CARBON DIOXIDE 25 mmol/L (21-32); CREATININE 0.82 mg/dl (0.60-1.20); GLUCOSE 104 mg/dl (70-99); LIPASE 140 U/L (73-393); POTASSIUM 3.7 mmol/L (3.5-5.1); SODIUM 139 mmol/L (136-145)
[2017-12-13 07:45] VITALS: PULSE 57; O2SAT 98
[2017-12-13 07:52] LABS: ALKALINE PHOSPHATASE 80 U/L (45-117); TOTAL PROTEIN 7.6 gm/dl (6.4-8.2)
--- NOTE | 2017-12-13 08:20 | DIAGNOSTIC IMAGING REPORT ---
SINGLE VIEW CHEST CLINICAL HISTORY: Hypertension. FINDINGS: An AP, portable, upright chest radiograph is compared to study dated 12/08/2017. The examination is degraded by portable technique and patient rotation. The heart is top normal for projection and there is atherosclerotic calcification of the thoracic aorta. The pulmonary vasculature is noncongested. There is chronic elevation of the right hemidiaphragm and bibasilar atelectasis. No airspace consolidation or large pleural effusion is identified. No pneumothorax is seen. The skeletal structures are osteopenic. Degenerative change and scoliosis are noted in the thoracic spine. IMPRESSION: No acute cardiopulmonary abnormality. Electronically signed by: Edmond Covarrubias M.D. 12/13/2017 8:19 AM Dictated Date/Time: 12/13/2017 8:18 AM
--- NOTE | 2017-12-13 08:54 | EMERGENCY ROOM VISIT NOTE ---
History Report prepared by Khushbu: Freeman Palacios Under the Supervision of: Dr. Gregor Garcia M.D. First contact with patient: 06:55 Chief Complaint: HYPERTENSION Stated Complaint: BLOOD PRESSURE HIGH History of Present Illness The patient is a 82 year old female who presents to the Emergency Room with complaints of improving hypertension beginning today. She states that she woke up today and felt the sensation of muscle soreness, without any actual pain. The patient states that she also experienced some dizziness this morning. She reports that her feet have felt abnormally cold for the past few days as well. Her additional symptoms have all resolved. The patient found her blood pressure to be 191/122. She has a history of hypertension, but has not had her morning medication (Norvasc) today. Her blood pressure was found to be 146/73 upon arrival to the ED. The patient was seen in the ED last week for chest pain. She had a cardiac stress test earlier this week which was normal. She was discharged from the ED on Amlodipine. The patient denies chest pain or abdominal pain. She denies any recent changes to her diet. She has not had breakfast this morning. Source of History: patient Onset: Today Symptom Intensity: blood pressure of 191/122 Quality: other (hypertension) Timing: constant Associated Symptoms: No chest pain, No abdominal pain Note: Positive: resolved dizziness, resolved sensations of sore arm muscles without pain, resolved feet coldness. Review of Systems See HPI for pertinent positives & negatives. A total of 10 systems reviewed and were otherwise negative. Past Medical & Surgical Medical Problems: (1) Chest pain (2) GERD (gastroesophageal reflux disease) (3) Hypothyroidism (4) Osteoporosis Family History Patient reports no known family medical history. Social History Smoking Status: Never Smoker Drug Use: none Marital Status: Housing Status: lives with family Occupation Status: retired Current/Historical Medications Scheduled Amlodipine Besylate (Amlodipine Besylate), 10 MG PO QAM Aspirin (Aspirin Ec), 81 MG PO HS Aspirin (Aspirin Ec), 81 MG PO QAM Aspirin (Aspirin), 2 TAB PO DAILY Cholecalciferol (Vitamin D), 1,000 INTER.UNIT PO QPM Levothyroxine Sodium (Levothyroxine Sodium), 1 TAB PO QAM Pantoprazole (Protonix), 40 MG PO QAM Scheduled PRN Famotidine (Pepcid), 10 MG PO QAM PRN for heartburn Allergies Coded Allergies: Ergotamine (Verified Allergy, Unknown, VIOLENT HEADACHE, 12/13/17) Sulfa Drugs (Verified Allergy, Unknown, "SULFA" ALLERGY REPORTED BY [facility]/ [facility], 12/13/17) Physical Exam Vital Signs Date Time Temp Pulse Resp B/P (MAP) Pulse Ox O2 Delivery O2 Flow Rate FiO2 12/13/17 08:56 142/69 12/13/17 07:45 57 18 143/68 98 Room Air 12/13/17 07:28 61 12/13/17 07:21 95 Room Air 12/13/17 06:50 36.6 66 20 146/73 94 Room Air Physical Exam GENERAL: Awake, alert, well-appearing, in no acute distress HENT: Normocephalic, atraumatic. Oropharynx unremarkable. EYES: Normal conjunctiva. Sclera non-icteric. NECK: Supple. No nuchal rigidity. FROM. No JVD. RESPIRATORY: Clear to auscultation. CARDIAC: Regular rate, normal rhythm. Extremities warm and well perfused. Pulses equal. ABDOMEN: Soft, non-distended. No tenderness to palpation. No rebound or guarding. No masses. RECTAL: Deferred. MUSCULOSKELETAL: Chest examination reveals no tenderness. The back is symmetrical on inspection without obvious abnormality. There is no CVA tenderness to palpation. No joint edema. LOWER EXTREMITIES: Calves are equal size bilaterally and non-tender. No edema. No discoloration. NEURO: Normal sensorium. No sensory or motor deficits noted. SKIN: No rash or jaundice noted. Medical Decision & Procedures ER Provider Diagnostic Interpretation: Radiology results as stated below per my review and radiologist interpretation: SINGLE VIEW CHEST FINDINGS: An AP, portable, upright chest radiograph is compared to study dated 12/08/2017. The examination is degraded by portable technique and patient rotation. The heart is top normal for projection and there is atherosclerotic calcification of the thoracic aorta. The pulmonary vasculature is noncongested. There is chronic elevation of the right hemidiaphragm and bibasilar atelectasis. No airspace consolidation or large pleural effusion is identified. No pneumothorax is seen. The skeletal structures are osteopenic. Degenerative change and scoliosis are noted in the thoracic spine. IMPRESSION: No acute cardiopulmonary abnormality. Electronically signed by: Edmond Covarrubias M.D. 12/13/2017 8:19 AM Laboratory Results 12/13/17 07:16 Red Blood Count 4.71, Mean Corpuscular Volume 84.7, Mean Corpuscular Hemoglobin 29.5, Mean Corpuscular Hemoglobin Concent 34.8, Mean Platelet Volume 9.5, Neutrophils (%) (Auto) 58.3, Lymphocytes (%) (Auto) 29.8, Monocytes (%) (Auto) 8.0, Eosinophils (%) (Auto) 2.9, Basophils (%) (Auto) 0.8, Neutrophils # (Auto) 3.07, Lymphocytes # (Auto) 1.57, Monocytes # (Auto) 0.42, Eosinophils # (Auto) 0.15, Basophils # (Auto) 0.04 12/13/17 07:16 Test 12/13/17 07:16 White Blood Count 5.26 K/uL (4.8-10.8) Red Blood Count 4.71 M/uL (4.2-5.4) Hemoglobin 13.9 g/dL (12.0-16.0) Hematocrit 39.9 % (37-47) Mean Corpuscular Volume 84.7 fL (80-100) Mean Corpuscular Hemoglobin 29.5 pg (25-34) Mean Corpuscular Hemoglobin Concent 34.8 g/dl (32-36) Platelet Count 218 K/uL (130-400) Mean Platelet Volume 9.5 fL (7.4-10.4) Neutrophils (%) (Auto) 58.3 % Lymphocytes (%) (Auto) 29.8 % Monocytes (%) (Auto) 8.0 % Eosinophils (%) (Auto) 2.9 % Basophils (%) (Auto) 0.8 % Neutrophils # (Auto) 3.07 K/uL (1.4-6.5) Lymphocytes # (Auto) 1.57 K/uL (1.2-3.4) Monocytes # (Auto) 0.42 K/uL (0.11-0.59) Eosinophils # (Auto) 0.15 K/uL (0-0.5) Basophils # (Auto) 0.04 K/uL (0-0.2) RDW Standard Deviation 41.2 fL (36.4-46.3) RDW Coefficient of Variation 13.5 % (11.5-14.5) Immature Granulocyte % (Auto) 0.2 % Immature Granulocyte # (Auto) 0.01 K/uL (0.00-0.02) Prothrombin Time 9.9 SECONDS (9.0-12.0) Prothromb Time International Ratio 0.9 (0.9-1.1) Activated Partial Thromboplast Time 25.3 SECONDS (21.0-31.0) Partial Thromboplastin Ratio 1.0 Anion Gap 4.0 mmol/L (3-11) Est Creatinine Clear Calc Drug Dose 49.7 ml/min Estimated GFR () 76.7 Estimated GFR (Non- 66.2 BUN/Creatinine Ratio 20.8 (10-20) Calcium Level 9.5 mg/dl (8.5-10.1) Total Bilirubin 0.5 mg/dl (0.2-1) Direct Bilirubin 0.2 mg/dl (0-0.2) Aspartate Amino Transf (AST/SGOT) 18 U/L (15-37) Alanine Aminotransferase (ALT/SGPT) 28 U/L (12-78) Alkaline Phosphatase 80 U/L (45-117) Total Creatine Kinase 120 U/L (26-192) Creatine Kinase MB 3.0 ng/ml (0.5-3.6) Creatine Kinase MB Ratio 2.5 (0-3.0) Troponin I < 0.015 ng/ml (0-0.045) Total Protein 7.6 gm/dl (6.4-8.2) Albumin 4.0 gm/dl (3.4-5.0) Lipase 140 U/L (73-393) Thyroid Stimulating Hormone (TSH) 1.490 uIu/ml (0.300-4.500) Labs reviewed by ED physician. ECG Per My Interpretation Indication: other (dizziness) Rate (beats per minute): 60 Rhythm: normal sinus Findings: no ectopy, other (No ST elevation or depression.) ED Course 0658: Past medical records reviewed. The patient was evaluated in room B2. A complete history and physical examination was performed. 0845: Upon reexamination the patient is resting comfortably. I offered to change her medications. I attempted to contact the patient's PCP, but was unable. I discussed results and treatment plan with the patient. She verbalizes agreement and understanding. She will follow up with her PCP on Saturday. The patient is ready for discharge. Medical Decision Differential diagnosis: Etiologies such as benign hypertension, hypertensive emergency, cardiovascular pathology, pheochromocytoma, electrolyte abnormality, renal disease, endorgan damage, as well as others were entertained. This is a 82-year-old female who presents emergency department complaining of hypertension. The patient was recently started on losartan. I will note that the patient's blood pressure has been falling while here. She has a normal CBC normal renal profile normal liver profile. A lengthy discussion with the patient and using shared medical decision-making with both the patient and her family we all made the decision together not to change her blood pressure medications until follow-up with Dr. Bourne. I gave the patient the option of starting lisinopril or beta yulissa to see if that would help her blood pressure better. I recommended she start taking her calcium channel yulissa in the morning. Patient was in agreement with the treatment plan. Medication Reconcilliation Current Medication List: was personally reviewed by me Blood Pressure Screening Patient's blood pressure: Elevated blood pressure Blood pressure disposition: Referred to PCP Impression Primary Impression: Hypertension Scribe Attestation The scribe's documentation has been prepared under my direction and personally reviewed by me in its entirety. I confirm that the note above accurately reflects all work, treatment, procedures, and medical decision making performed by me. Departure Information Dispostion Home / Self-Care Referrals Ron Bourne D.O. (PCP) Forms HOME CARE DOCUMENTATION FORM, IMPORTANT VISIT INFORMATION, WORK / SCHOOL INSTRUCTIONS Patient Instructions Hypertension Sd, My [facility] Additional Instructions You were found to have an elevated blood pressure today (>120 sytolic or >90 diastolic). Per medicare guidelines, you need to follow up with this blood pressure screening with your Primary Care Physician (PCP). For a new PCP call [phone]. You have been examined and treated today on an emergency basis only. This is not a substitute for, or an effort to provide, complete comprehensive medical care. It is impossible to recognize and treat all injuries or illnesses in a single emergency department visit. It is therefore important that you follow up closely with Dr Bourne. Call as soon as possible for an appointment. Thank you for your time and consideration. I look forward to speaking with you again soon. Please don't hesitate to call us if you have any questions. Problem Qualifiers Primary Impression: Hypertension Hypertension type: unspecified Qualified Codes: I10 - Essential (primary) hypertension
[2017-12-13 08:56] VITALS: BP 142/69
== END 2017-12-13 08:57 | disposition home or self-care (01) ==
LOC: C.EDB 06:47
DX: I10 Essential (primary) hypertension (principal); K21.9 Gastro-esophageal reflux disease without esophagitis; E03.9 Hypothyroidism, unspecified; M81.0 Age-related osteoporosis without current pathological fracture; Z79.82 Long term (current) use of aspirin; Z79.899 Other long term (current) drug therapy; Z88.2 Allergy status to sulfonamides; Z88.8 Allergy status to other drugs, medicaments and biological substances

== ENCOUNTER 2017-12-15 04:34 | Emergency (ER) | payer OTHER ==
[~2017-12-15] VITALS: Ht 160 cm; Wt 72.0 kg
[~2017-12-15 04:34] MED LIST changes: +ASPI81CH2 PO; +ASPI81TA28 PO; +NRV/10 PO
[2017-12-15 04:37] VITALS: TEMP 36.5; Ht 160 cm; Wt 72.0 kg
--- NOTE | 2017-12-15 05:42 | DIAGNOSTIC IMAGING REPORT ---
R VENOUS DOPP LOWER EXT UNILAT CLINICAL HISTORY: 82 years-old Female presenting with right calf pain, recent hospitalization. TECHNIQUE: Real-time grayscale and color and spectral Doppler ultrasound imaging of the veins of the right lower extremity was performed. Compression and augmentation were also utilized. COMPARISON: None. FINDINGS: Right: Common femoral vein: Patent. Greater saphenous vein: Patent. Deep femoral vein: Patent. Femoral vein: Patent. Popliteal vein: Patent. Calf veins: Patent. Other: None. IMPRESSION: No evidence of deep venous thrombosis. Electronically signed by: Wilmer Bello M.D. 12/15/2017 5:41 AM Dictated Date/Time: 12/15/2017 5:40 AM
--- NOTE | 2017-12-15 05:45 | EMERGENCY ROOM VISIT NOTE ---
History Report prepared by Khushbu: Lexie John Under the Supervision of: Dr. Tenzin Landry M.D. First contact with patient: 04:44 Chief Complaint: LEG PAIN,LEG INJURY Stated Complaint: RIGHT LEG PAIN History of Present Illness The patient is an 82 year old female who presents to the Emergency Room with complaints of persistent right knee pain since light night. She was seen in the ED two days ago for hypertension evaluation. She denies any history of knee pain. She notes the pain was especially painful last night. She denies any falls or injuries. She also notes right calf pain. She reports the pain is worsened with sitting and relieved with walking. She reports taking Tylenol before bed last night. She denies any leg swelling, rashes, fevers, chest pain, or shortness of breath. She denies any strenuous activity. She denies any groin pain. She denies any personal or family history of blood clots. She denies any estrogen use or recent car trips. She regularly takes a baby Aspirin. She had an exercised-induced stress test December 08, 2017. Source of History: patient Onset: since last night Position: knee (right) Timing: other (persistent) Modifying Factors (Worsening): other (sitting) Modifying Factors (Relieving): other (walking) Associated Symptoms: No fevers, No chest pain, No SOB, No rash Note: She notes right calf pain. She denies any leg swelling, groin pain, falls, or injuries. Review of Systems See HPI for pertinent positives & negatives. A total of 6 systems reviewed and were otherwise negative. Past Medical & Surgical Medical Problems: (1) Chest pain (2) GERD (gastroesophageal reflux disease) (3) Hypothyroidism (4) Osteoporosis Family History Patient reports no known family medical history. Social History Smoking Status: Never Smoker Smokeless Tobacco Use: No Drug Use: none Marital Status: Housing Status: lives with family Occupation Status: retired Current/Historical Medications Scheduled Amlodipine Besylate (Amlodipine Besylate), 10 MG PO QAM Aspirin (Aspirin Ec), 81 MG PO HS Aspirin (Aspirin Ec), 81 MG PO QAM Aspirin (Aspirin), 2 TAB PO DAILY Cholecalciferol (Vitamin D), 1,000 INTER.UNIT PO QPM Levothyroxine Sodium (Levothyroxine Sodium), 1 TAB PO QAM Pantoprazole (Protonix), 40 MG PO QAM Scheduled PRN Famotidine (Pepcid), 10 MG PO QAM PRN for heartburn Allergies Coded Allergies: Ergotamine (Verified Allergy, Unknown, VIOLENT HEADACHE, 12/13/17) Sulfa Drugs (Verified Allergy, Unknown, "SULFA" ALLERGY REPORTED BY [facility]/ [facility], 12/13/17) Physical Exam Vital Signs Date Time Temp Pulse Resp B/P (MAP) Pulse Ox O2 Delivery O2 Flow Rate FiO2 12/15/17 05:55 65 16 137/74 96 Room Air 12/15/17 04:37 36.5 88 20 135/77 96 Room Air Physical Exam GENERAL: Patient is well appearing and in no acute distress. EYES: No scleral icterus, unremarkable pupils. ENT: Mucous membranes moist, no nasal congestion. NECK: No masses appreciated, no meningismus, trachea is midline. RESPIRATORY: No dyspnea. Clear to auscultation and equal bilaterally. No wheeze , no rhonchi. CARDIOVASCULAR: Regular rate and rhythm. No murmurs, rubs, gallops appreciated. EXTREMITIES: Normal motion all extremities, no cyanosis, no edema. Mild t to anterior knee, some pain with posterior movement of knee. Vague right calf tenderness to palpation. Knee is stable without laxity. NEUROLOGIC: Alert and oriented, no acute motor or sensory deficits, no focal weakness, cranial nerves grossly intact. SKIN: No rash, no jaundice, no diaphoresis. Medical Decision & Procedures ER Provider Diagnostic Interpretation: Radiology results and stated below per my review and radiologist interpretation: US VENOUS RIGHT LOWER EXTREMITY: Impression: No evidence of deep vein thrombosis in the right lower extremity. Radiologist: Max Kate MD Study ready at 05:28 and initial results transmitted at 05:30 R VENOUS DOPP LOWER EXT UNILAT CLINICAL HISTORY: 82 years-old Female presenting with right calf pain, recent hospitalization. TECHNIQUE: Real-time grayscale and color and spectral Doppler ultrasound imaging of the veins of the right lower extremity was performed. Compression and augmentation were also utilized. COMPARISON: None. FINDINGS: Right: Common femoral vein: Patent. Greater saphenous vein: Patent. Deep femoral vein: Patent. Femoral vein: Patent. Popliteal vein: Patent. Calf veins: Patent. Other: None. IMPRESSION: No evidence of deep venous thrombosis. Electronically signed by: Wilmer Bello M.D. 12/15/2017 5:41 AM Dictated Date/Time: 12/15/2017 5:40 AM ED Course 0450: The patient was evaluated in room B10. A complete history and physical exam was performed. 0544: I reassessed the patient at this time. She is comfortably resting. I discussed the results and treatment plan with the patient. I answered all pertaining questions that she had. She expressed understanding and verbalized agreement. The patient will be discharged home. Medical Decision Differential: Fracture, Dislocation, Cellulitis, Septic Joint, Ligamentous Injury, Effusion, DVT, amongst other pathologies entertained. 82 yr old female with right anterior knee discomfort as well as mild lower right calf discomfort. Exam consistent with some patellar tendonitis vs anterior meniscal irritation of knee. No laxity and patient looks well otherwise. There is no evidence of septic joint, infection and imaging without fracture/dislocation. Distal N/V intact. US negative for DVT. Patient stable , looks well and comfortable with discharge. Medication Reconcilliation Current Medication List: was personally reviewed by me Blood Pressure Screening Patient's blood pressure: Normal blood pressure Impression Primary Impression: Right knee pain Scribe Attestation The scribe's documentation has been prepared under my direction and personally reviewed by me in its entirety. I confirm that the note above accurately reflects all work, treatment, procedures, and medical decision making performed by me. Departure Information Dispostion Home / Self-Care Referrals Ron Bourne D.O. (PCP) Forms HOME CARE DOCUMENTATION FORM, IMPORTANT VISIT INFORMATION Patient Instructions My [facility] Additional Instructions Knee pain is likely due to inflammation/irritation from overuse recently in setting of some arthritis. Rest and use ice/cool compresses as needed. Use Tylenol as needed for discomfort. Follow up with primary care provider if continued irritation. Return if swelling, redness, fevers/warmth, severe pain or other concerns.
[2017-12-15 05:55] VITALS: BP 137/74; PULSE 65; O2SAT 96
--- NOTE | 2017-12-15 06:00 | DIAGNOSTIC IMAGING REPORT ---
R KNEE 1 OR 2 VIEWS ROUTINE CLINICAL HISTORY: 82 years-old Female presenting with right knee discomfort. TECHNIQUE: Frontal and lateral views the right knee were obtained. COMPARISON: None. FINDINGS: No acute fracture or malalignment. . Mild osteophytosis noted in the patellofemoral compartment. Prominent enthesophyte at the insertion of the quadriceps tendon. No radiographic soft tissue abnormality. No large effusion. IMPRESSION: 1. No acute osseous injury. 2. Mild degenerative changes of the patellofemoral compartment. Electronically signed by: Wilmer Bello M.D. 12/15/2017 5:58 AM Dictated Date/Time: 12/15/2017 5:57 AM
== END 2017-12-15 05:55 | disposition home or self-care (01) ==
LOC: C.EDB 04:35
DX: M25.561 Pain in right knee (principal); E03.9 Hypothyroidism, unspecified; K21.9 Gastro-esophageal reflux disease without esophagitis; Z79.82 Long term (current) use of aspirin; Z79.899 Other long term (current) drug therapy; Z88.8 Allergy status to other drugs, medicaments and biological substances; Z88.2 Allergy status to sulfonamides

== ENCOUNTER 2021-07-20 16:58 | Observation (INO) ==
--- NOTE | 2021-07-20 17:14 | Emergency Department Note ---
Impression & Plan Chest pain, Abnormal EKG ED Provider Note NAME: DEISY SY AGE: 86 SEX: F : 1935 ARRIVES VIA: Ambulance INFORMANT: Patient, ED PROVIDER(S): Conrado Martinez DO CHIEF COMPLAINT: Chest pain HPI: The patient is an 86-year-old female who presented to the emergency department by ambulance for an evaluation of chest pain. The patient states that she is been having intermittent episodes of chest pain over the last 3 days. She has noticed that whenever these episodes occur she does note that her blood pressure is elevated. She was driving today on her way to their [place] with her and her . She had to tap puller because chest pain became very severe. She started noticing pain into her neck as well. She called 911 and presented to the emergency department by ambulance. She took 4 baby aspirin prior to calling the ambulance. Pain is significantly improved and resolved at this time. She does not have a history of coronary artery disease but does have a history of hypertension. She denies having any abdominal pain. She denied having any difficulty breathing or lower extremity swelling. She noted the pain went into her neck and this is why she was concerned and called 911. ROS: See above HPI for pertinent positives & negatives. A total of 10 systems reviewed and were otherwise negative. PAST MEDICAL HISTORY: See Below PAST SURGICAL HISTORY: See Below FAMILY HISTORY: See Below SOCIAL HISTORY: See Below HOME MEDICATIONS: See Below ALLERGIES: See Below VITALS: See Below PHYSICAL EXAMINATION: GENERAL: Patient is awake alert in no acute distress patient is resting comfortably and showing no signs of anxiety EYES: The conjunctivae are clear. The pupils are round and reactive. EARS, NOSE, MOUTH AND THROAT: The nose is without any evidence of any deformity. NECK: The neck is nontender and supple. RESPIRATORY: Normal respiratory effort is noted there is no evidence of wheezing rhonchi or rales CARDIOVASCULAR: Regular rate and rhythm noted there no murmurs rubs or gallops normal S1 normal S2. GASTROINTESTINAL: The abdomen is soft. Abdomen is nontender. MUSCULOSKELETAL/EXTREMITIES: There is no evidence of gross deformity full range of motion is noted in the hips and shoulders. SKIN: There is no obvious evidence of any rash. There are no petechiae, pallor or cyanosis noted. NEUROLOGIC: Patient is awake alert and oriented x 3. MEDICAL DECISION MAKING: The patient is an 86-year-old female who presented to the emergency department for an evaluation of chest pain. The patient took aspirin prior to arrival. She arrived via ambulance but was pain-free upon arrival. I discussed the patient's laboratory and radiographic studies with her. I also discussed the limitations of the emergency department work-up for chest pain with her. Ultimately given her age and comorbidities I did feel that she would be a better candidate for inpatient management. I discussed her case with the on-call [facility] group. They have agreed to evaluate the patient in the emergency department for further management and disposition. Triage Nursing notes reviewed. Prior medical records reviewed Vital Signs: reviewed and remarkable for elevated blood pressure. Differential diagnosis: Cardiac ischemia, aortic dissection, pulmonary embolism, pneumothorax, pneumonia, pericarditis, myocarditis, esophageal rupture, GERD, cholecystitis, pancreatitis, musculoskeletal, as well as other pathologies. ER treatment provided: See below Diagnostics interpreted by me: ECG: EKG was obtained in the emergency department. My interpretation is sinus rhythm at 71 bpm. PACs were noted. Nonspecific ST segment depressions were noted. This was compared to a tracing from December 172018. No changes were noted. Cardiac Monitoring: An order was placed for continuous cardiac monitoring. The monitor shows a rate of 59 bpm with sinus rhythm. Laboratory studies: As stated above and show below. Imaging studies: See below Consultation(s): I discussed this case with the on-call [facility] hospitalist. They have agreed to evaluate the patient in the emergency department. Past Med/Surg History Medical History (Updated 07/20/21 @ 19:50 by Conrado Martinez DO) GERD (gastroesophageal reflux disease) Hypertension Hypothyroidism No pertinent family history Osteoporosis Surgical History No pertinent past surgical history Family History Other No pertinent family history Social History Smoking Status: Never smoker Hx Substance Use: No Preferred Language: Peruvian Communication Ability: Effective Hearing Ability: Normal marital status: Current Living Situation: Spouse current occupational status: retired Feels Safe at Home: Yes Allergies Allergies Allergy/AdvReac Type Severity Reaction Status Date / Time ergotamine Allergy Unknown VIOLENT Verified 07/20/21 18:26 HEADACHE Sulfa (Sulfonamide Allergy Unknown "SULFA" Verified 07/20/21 18:26 Antibiotics) ALLERGY REPORTED BY [facility] Home Meds Home Medications Medication Instructions Recorded Confirmed aspirin 81 mg tablet,delayed 81 mg PO DAILY 12/07/18 07/20/21 release (Aspirin Low Dose) cholecalciferol (vitamin D3) 25 1,000 unit PO DAILY 12/07/18 07/20/21 mcg (1,000 unit) capsule (Vitamin D3) famotidine 10 mg tablet 10 mg PO HS 12/07/18 07/20/21 levothyroxine 100 mcg capsule 100 mcg PO DAILY 12/07/18 07/20/21 losartan 25 mg tablet 25 mg PO DAILY 12/07/18 07/20/21 alendronate 70 mg tablet 70 mg PO WK 07/20/21 07/20/21 amlodipine 5 mg tablet 5 mg PO DAILY 07/20/21 07/20/21 cyanocobalamin (vitamin B-12) 1,000 mcg PO DAILY 07/20/21 07/20/21 1,000 mcg tablet Results & Data (ED) Vital Signs Vital Signs - 24 hr 07/20/21 16:58 07/20/21 17:25 07/20/21 18:09 Temperature 36.8 C Temperature Source Oral Pulse Rate 76 Pulse Rate [Apical] 59 L Respiratory Rate 16 16 Blood Pressure 173/91 H Blood Pressure [Right Arm] 146/81 H Blood Pressure Mean 118 Blood Pressure Mean [Right Arm] 102 Pulse Oximetry 96 97 Oxygen Delivery Method Room Air Room Air Room Air Sepsis Recent Fever Within 48 Hours No Sepsis New/Unexplained Change in Mental Status No Sepsis Action Taken by Nursing No Action Required Home Medications Current Medication List: was personally reviewed by me Laboratory Data Attestation: I reviewed the patient's lab results. Result diagrams: 07/20/21 17:21 07/20/21 17:21 Lab Results 07/20/21 07/20/21 07/20/21 Range/Units 17:21 17:21 17:21 WBC 6.44 (4.8-10.8) K/uL RBC 4.36 (4.2-5.4) M/uL Hgb 13.0 (12.0-16.0) g/dL Hct 39.3 (37-47) % MCV 90.1 (80-100) fL MCH 29.8 (25-34) pg MCHC 33.1 (32-36) g/dL RDW Std Deviation 44.5 (36.4-46.3) fL RDW Coeff of Ramos 13.4 (11.5-14.5) % Plt Count 212 (130-400) K/uL MPV 9.4 (7.4-10.4) fL Immature Gran % (Auto) 0.0 % Neut % (Auto) 60.3 % Lymph % (Auto) 30.7 % Rolette % (Auto) 6.7 % Eos % (Auto) 2.0 % Baso % (Auto) 0.3 % Neut # (Auto) 3.88 (1.4-6.5) K/uL Lymph # (Auto) 1.98 (1.2-3.4) K/uL Rolette # (Auto) 0.43 (0.11-0.59) K/uL Eos # (Auto) 0.13 (0-0.5) K/uL Baso # (Auto) 0.02 (0-0.2) K/uL Immature Gran # (Auto) 0.00 (0.00-0.02) K/uL PT 9.6 (9.0-12.0) Seconds INR 0.9 (0.9-1.1) APTT 25.1 (21.0-31.0) Seconds PTT Ratio 1.0 Sodium 140 (136-145) mmol/L Potassium 4.0 (3.5-5.1) mmol/L Chloride 108 H (98-107) mmol/L Carbon Dioxide 24 (21-32) mmol/L Anion Gap 8.0 (3-11) BUN 21 H (7-18) mg/dl Creatinine 0.88 (0.6-1.2) mg/dl Est Cr Clr Drug Dosing 43.9 ml/min Est GFR ( Amer) 68.5 ml/min Est GFR (Non-Af Amer) 59.1 ml/min BUN/Creatinine Ratio 23.7 H (10-20) Glucose 95 (70-99) mg/dl Calcium 9.5 (8.5-10.1) mg/dl Total Bilirubin 0.5 (0.2-1) mg/dl AST 17 (15-37) U/L ALT 25 (12-78) U/L Alkaline Phosphatase 72 (45-117) U/L Troponin I < 0.015 (0-0.045) ng/ml Total Protein 7.5 (6.4-8.2) gm/dl Albumin 3.7 (3.4-5.0) gm/dl Globulin 3.8 (2.5-4.0) gm/dl Albumin/Globulin Ratio 1.0 (0.9-2) Lipase 141 (73-393) U/L SARS-CoV-2, RNA, NAAT (NEGATIVE) 07/20/21 Range/Units 17:21 WBC (4.8-10.8) K/uL RBC (4.2-5.4) M/uL Hgb (12.0-16.0) g/dL Hct (37-47) % MCV (80-100) fL MCH (25-34) pg MCHC (32-36) g/dL RDW Std Deviation (36.4-46.3) fL RDW Coeff of Ramos (11.5-14.5) % Plt Count (130-400) K/uL MPV (7.4-10.4) fL Immature Gran % (Auto) % Neut % (Auto) % Lymph % (Auto) % Rolette % (Auto) % Eos % (Auto) % Baso % (Auto) % Neut # (Auto) (1.4-6.5) K/uL Lymph # (Auto) (1.2-3.4) K/uL Rolette # (Auto) (0.11-0.59) K/uL Eos # (Auto) (0-0.5) K/uL Baso # (Auto) (0-0.2) K/uL Immature Gran # (Auto) (0.00-0.02) K/uL PT (9.0-12.0) Seconds INR (0.9-1.1) APTT (21.0-31.0) Seconds PTT Ratio Sodium (136-145) mmol/L Potassium (3.5-5.1) mmol/L Chloride (98-107) mmol/L Carbon Dioxide (21-32) mmol/L Anion Gap (3-11) BUN (7-18) mg/dl Creatinine (0.6-1.2) mg/dl Est Cr Clr Drug Dosing ml/min Est GFR ( Amer) ml/min Est GFR (Non-Af Amer) ml/min BUN/Creatinine Ratio (10-20) Glucose (70-99) mg/dl Calcium (8.5-10.1) mg/dl Total Bilirubin (0.2-1) mg/dl AST (15-37) U/L ALT (12-78) U/L Alkaline Phosphatase (45-117) U/L Troponin I (0-0.045) ng/ml Total Protein (6.4-8.2) gm/dl Albumin (3.4-5.0) gm/dl Globulin (2.5-4.0) gm/dl Albumin/Globulin Ratio (0.9-2) Lipase (73-393) U/L SARS-CoV-2, RNA, NAAT NEGATIVE (NEGATIVE) Imaging Data Radiologist's Impression: Chest X-Ray 07/20/21 17:10 SINGLE VIEW CHEST CLINICAL HISTORY: Atypical chest pain. FINDINGS: An AP, portable, upright chest radiograph is compared to study dated 12/13/2017. The heart is mildly enlarged noting atherosclerotic calcification of the thoracic aorta. The pulmonary vasculature is noncongested. There is chronic elevation of the right hemidiaphragm with bibasilar scarring/atelectasis. No airspace consolidation or large pleural effusion is identified. No pneumothorax is seen. The skeletal structures are osteopenic. The bony thorax is grossly intact. IMPRESSION: No active disease in the chest. ACT 112: Negative or not required by law. Electronically signed by: Edmond Covarrubias M.D. 07/20/2021 5:37 PM Discharge Plan Visit Data Chief Complaint: Chest Pain Stated Complaint: CHEST PAIN ED Provider: Conrado Martinez Discharge Problem: Chest pain, Abnormal EKG Patient Disposition: Being Evaluated by Hospitalist Forms Stand Alone Forms: My [facility] [employer] Prescriptions Prescriptions: No Action aspirin [Aspirin Low Dose] 81 mg Tablet,Delayed Release (Dr/Ec) 81 mg PO DAILY RF: 0 losartan 25 mg tablet 25 mg PO DAILY RF: 0 cholecalciferol (vitamin D3) [Vitamin D3] 1,000 unit Capsule 1,000 unit PO DAILY RF: 0 levothyroxine 100 mcg Capsule 100 mcg PO DAILY RF: 0 famotidine 10 mg Tablet 10 mg PO HS RF: 0 alendronate 70 mg tablet 70 mg PO WK RF: 0 cyanocobalamin (vitamin B-12) 1,000 mcg tablet 1,000 mcg PO DAILY RF: 0 amlodipine 5 mg tablet 5 mg PO DAILY RF: 0 Referrals Referrals: Ron Bourne DO [Physician] -
[2021-07-20 17:30] LABS: Basophils # (auto) 0.02 K/uL (0-0.2); Basophils % (auto) 0.3 %; Eosinophils # (auto) 0.13 K/uL (0-0.5); Hematocrit (blood only) 39.3 % (37-47); Lymphocytes # (auto) 1.98 K/uL (1.2-3.4); Lymphocytes % (auto) 30.7 %; Mean Corpuscular Hemoglobin 29.8 pg (25-34); Mean Corpuscular Hgb Conc 33.1 g/dL (32-36); Mean Corpuscular Volume 90.1 fL (80-100); Mean Platelet Volume 9.4 fL (7.4-10.4); Monocytes # (auto) 0.43 K/uL (0.11-0.59); Monocytes % (auto) 6.7 %; Neutrophils # (auto) 3.88 K/uL (1.4-6.5); Neutrophils % (auto) 60.3 %; Platelet Count 212 K/uL (130-400); RDW Coefficient of Variation 13.4 % (11.5-14.5); RDW Standard Deviation 44.5 fL (36.4-46.3); Red Blood Count 4.36 M/uL (4.2-5.4); White Blood Count 6.44 K/uL (4.8-10.8)
--- NOTE | 2021-07-20 17:39 | XRay Report ---
SINGLE VIEW CHEST CLINICAL HISTORY: Atypical chest pain. FINDINGS: An AP, portable, upright chest radiograph is compared to study dated 12/13/2017. The heart i s mildly enlarged noting atherosclerotic calcification of the thoracic aorta. The pulmonary vasculatu re is noncongested. There is chronic elevation of the right hemidiaphragm with bibasilar scarring/ate lectasis. No airspace consolidation or large pleural effusion is identified. No pneumothorax is seen. The skeletal structures are osteopenic. The bony thorax is grossly intact. IMPRESSION: No active disease in the chest. ACT 112: Negative or not required by law. Electronically signed by: Edmond Covarrubias M.D. 07/20/2021 5:37 PM
[2021-07-20 17:43] LABS: INR 0.9 (0.9-1.1); Partial Thromboplastin Time 25.1 Seconds (21.0-31.0); Prothrombin Time 9.6 Seconds (9.0-12.0)
[2021-07-20 17:48] LABS: Alanine Aminotransferase 25 U/L (12-78); Albumin Level 3.7 gm/dl (3.4-5.0); Aspartate Aminotransferase 17 U/L (15-37); BUN Creatinine Ratio 23.7 (10-20); Blood Urea Nitrogen 21 mg/dl (7-18); Calcium 9.5 mg/dl (8.5-10.1); Carbon Dioxide 24 mmol/L (21-32); Chloride 108 mmol/L (98-107); Creatinine Clr Calc Pharmacy 43.9 ml/min; Est GFR (African American) 68.5 ml/min; Est GFR (Non-African American) 59.1 ml/min; Glucose 95 mg/dl (70-99); Lipase 141 U/L (73-393); Sodium 140 mmol/L (136-145)
[2021-07-20 17:53] LABS: Alkaline Phosphatase 72 U/L (45-117); Bilirubin,Total 0.5 mg/dl (0.2-1); Globulin 3.8 gm/dl (2.5-4.0); Total Protein 7.5 gm/dl (6.4-8.2); Troponin I < 0.015 ng/ml (0-0.045)
--- NOTE | 2021-07-20 18:32 | History & Physical Report ---
Date of Service July 20, 2021 Assessment & Plan (1) Chest pain: Plan: Unclear etiology for pain - cardiac vs. GI. Risk factors of HTN, possible history of dyslipidemia, age. Non-smoker. No family hx of cardiac disease - Monitor med/surg tele - Trend troponin - Repeat EKG in AM - Check ECHO - Consult cardiology for additional recommendations - will make NPO after midnight in anticipation of potential additional testing (2) GERD (gastroesophageal reflux disease): Plan: Recent increase in her acid reflux symptoms that has not been as responsive to famotidine as previous - Will add pantoprazole 40 mg daily and hold famotidine for now - Consider GI consult if cardiac w/u negative (3) CKD (chronic kidney disease) stage 3, GFR 30-59 ml/min: Plan: - Follow labs (4) Dyslipidemia: Plan: Not currently on medication for this - Check lipid panel in AM (5) Hypothyroidism: Plan: - TSH with AM labs - Continue levothyroxine (6) Vitamin B12 deficiency: Plan: - Continue B12 supplement Plan: Pt seen and reviewed with attending physician, Dr. Peres. Plan of care discussed and as outlined above. Code Status: Full Code DVT Prophylaxis: Marquis Adkins PA-C History of Present Illness Chief Complaint: Chest pain Primary Care Provider: Ron Bourne, This is an 86 y/o female with a PMH of HTN, GERD, dyslipidemia, osteoporosis, hypothyroidism, and CKD3a who presents to the ED today with chest pain. Pt reports that she started about a week ago with occasional left-sided chest pain/discomfort - has been present intermittently since then. Not associated with eating. No specific activities triggered this. Pain may radiate to her jaw at times. Today, it came on when she was driving and was more severe. Pain was only lasting a few minutes at a time until today when it lasted at least 30 minutes. Mild associated diaphoresis. No associated SOB, N/V, dizziness. She did take aspirin prior to arrival, no nitro. The pain is similar to sensation that she had three years ago when she was diagnosed with HTN. Pt also notes that her GERD symptoms have been worse recently - uses pepcid at home but doesn't seem like it has been as effective recently. Was on pantoprazole for three years previously which helped but stopped it because she didn't know that she should continue it. Concerned about being on pantoprazole long-term. The pt reports that she did have a scope years ago - no PUD. She denies prior UT. Stress test in 2018 was unremarkable. Denies family history of known cardiac disease. Allergies Allergy/AdvReac Type Severity Reaction Status Date / Time ergotamine Allergy Unknown VIOLENT Verified 07/20/21 18:26 HEADACHE Sulfa (Sulfonamide Allergy Unknown "SULFA" Verified 07/20/21 18:26 Antibiotics) ALLERGY REPORTED BY [facility] Home Medications Medication Instructions Recorded Confirmed Type aspirin 81 mg tablet,delayed 81 mg PO DAILY 12/07/18 07/20/21 History release (Aspirin Low Dose) cholecalciferol (vitamin D3) 25 1,000 unit PO DAILY 12/07/18 07/20/21 History mcg (1,000 unit) capsule (Vitamin D3) famotidine 10 mg tablet 10 mg PO HS 12/07/18 07/20/21 History levothyroxine 100 mcg capsule 100 mcg PO DAILY 12/07/18 07/20/21 History losartan 25 mg tablet 25 mg PO DAILY 12/07/18 07/20/21 History alendronate 70 mg tablet 70 mg PO WK 07/20/21 07/20/21 History amlodipine 5 mg tablet 5 mg PO DAILY 07/20/21 07/20/21 History cyanocobalamin (vitamin B-12) 1,000 mcg PO DAILY 07/20/21 07/20/21 History 1,000 mcg tablet Past Med/Surg History Medical History CKD (chronic kidney disease) stage 3, GFR 30-59 ml/min Dyslipidemia GERD (gastroesophageal reflux disease) Hypertension Hypothyroidism Osteoporosis Vitamin B12 deficiency Surgical History History of colonoscopy History of esophagogastroduodenoscopy (EGD) Family History Other No pertinent family history Social History Smoking Status: Never smoker Hx Substance Use: No Preferred Language: Syriac Communication Ability: Effective Hearing Ability: Normal marital status: Current Living Situation: Spouse current occupational status: retired Feels Safe at Home: Yes Review of Systems Review of Systems: All systems reviewed & are unremarkable except as noted in HPI & below Constitutional: no fever, no chills, no body aches and no anorexia Eyes: no diplopia and no worsening vision Respiratory: no cough, no dyspnea and no wheezing Cardiovascular: as per Subjective / HPI Gastrointestinal: + heartburn; no nausea, no vomiting and no diarrhea/loose stools Genitourinary: no dysuria and no urinary frequency Musculoskeletal: no back pain and no neck pain Integumentary: no rash and no yellowing of the skin Neurologic: no falls, no dizziness, no syncope and no headache(s) Psychiatric: no depression and no anxiety Physical Exam Constitutional: well developed and well nourished; no acute distress Eyes: + anicteric sclerae Neck: trachea midline Respiratory: no respiratory distress and no labored breathing Auscultation: lungs clear to auscultation bilaterally; no rales, no rhonchi and no wheezes Cardiovascular: Rate/Rhythm: regular rate and regular rhythm Vessels: dorsalis pedis pulses present and radial pulses present Extremities: no edema No chest wall tenderness to palpation Gastrointestinal (Abdomen): Inspection/Auscultation: normal bowel sounds; abdomen not distended Percussion/Palpation: abdomen soft; abdomen nontender Musculoskeletal: Head/Neck/Chest: normocephalic, head atraumatic and neck supple Skin: no rashes and no jaundice Neurologic: moves all extremities; no focal motor deficits Psychiatric: A+Ox3, euthymic affect Results & Data Results & Data ([facility]) Vital Signs (Past 12 Hours) Vital Signs Temp Pulse Pulse Resp BP BP Pulse Ox 07/20/21 18:09 59 L 16 146/81 H 97 07/20/21 16:58 36.8 C 76 16 173/91 H 96 Laboratory Results Laboratory Results - last 24 hr 07/20/21 07/20/21 07/20/21 17:21 17:21 17:21 WBC 6.44 RBC 4.36 Hgb 13.0 Hct 39.3 MCV 90.1 MCH 29.8 MCHC 33.1 RDW Std Deviation 44.5 RDW Coeff of Ramos 13.4 Plt Count 212 MPV 9.4 Immature Gran % (Auto) 0.0 Neut % (Auto) 60.3 Lymph % (Auto) 30.7 [place] % (Auto) 6.7 Eos % (Auto) 2.0 Baso % (Auto) 0.3 Neut # (Auto) 3.88 Lymph # (Auto) 1.98 [place] # (Auto) 0.43 Eos # (Auto) 0.13 Baso # (Auto) 0.02 Immature Gran # (Auto) 0.00 PT 9.6 INR 0.9 APTT 25.1 PTT Ratio 1.0 Sodium 140 Potassium 4.0 Chloride 108 H Carbon Dioxide 24 Anion Gap 8.0 BUN 21 H Creatinine 0.88 Est Cr Clr Drug Dosing 43.9 Est GFR ( Amer) 68.5 Est GFR (Non-Af Amer) 59.1 BUN/Creatinine Ratio 23.7 H Glucose 95 Calcium 9.5 Total Bilirubin 0.5 AST 17 ALT 25 Alkaline Phosphatase 72 Troponin I < 0.015 Total Protein 7.5 Albumin 3.7 Globulin 3.8 Albumin/Globulin Ratio 1.0 Lipase 141 SARS-CoV-2, RNA, NAAT 07/20/21 17:21 WBC RBC Hgb Hct MCV MCH MCHC RDW Std Deviation RDW Coeff of Ramos Plt Count MPV Immature Gran % (Auto) Neut % (Auto) Lymph % (Auto) [place] % (Auto) Eos % (Auto) Baso % (Auto) Neut # (Auto) Lymph # (Auto) [place] # (Auto) Eos # (Auto) Baso # (Auto) Immature Gran # (Auto) PT INR APTT PTT Ratio Sodium Potassium Chloride Carbon Dioxide Anion Gap BUN Creatinine Est Cr Clr Drug Dosing Est GFR ( Amer) Est GFR (Non-Af Amer) BUN/Creatinine Ratio Glucose Calcium Total Bilirubin AST ALT Alkaline Phosphatase Troponin I Total Protein Albumin Globulin Albumin/Globulin Ratio Lipase SARS-CoV-2, RNA, NAAT NEGATIVE Diagnostic Findings Chest X-ray 07/20/21 - IMPRESSION: No active disease in the chest. Medications Administered None in ED Supervising Physician Co-Signing Physician Notes Patient is a 86-year-old female with history of hypertension, dyslipidemia, CKD stage III and other medical problems presents with history of intermittent chest pain since 1 week duration which is left-sided, no aggravating relieving factors, radiates to jaw intermittently. Please review HPI for complete details of presentation. Initial troponin negative. EKG showed nonspecific T wave abnormality. Currently patient is chest pain-free while in ED. On exam patient is moderately built and nourished, no apparent distress, normocephalic atraumatic, lungs are clear to auscultation, S1-S2, no murmur, no pedal edema, abdomen soft, nontender, normal bowel sounds, alert, awake, oriented, grossly no focal deficits. Patient is admitted for management of chest pain rule out ACS. Agree with trending cardiac enzymes, checking resting echo and repeat EKG in the morning. We will keep her n.p.o. after midnight for cardiology evaluation in the morning. Check lipid panel. I personally reviewed the record. Patient is interviewed and examined at bedside. Patient's care is coordinated with Lona Adkins PA-C. Please refer to the documentation above for details of patient's presentation and for discussion of other issues. (1) Chest pain Chest pain type: unspecified Qualified Code(s): R07.9 - Chest pain, unspecified
[2021-07-20] MEDS ORDERED: ALUMINUM/MAGNESIUM/SIMETH (MAALOX MAX) 30 ML UDC PO PRN (21:20)
[2021-07-21 06:11] LABS: Basophils # (auto) 0.03 K/uL (0-0.2); Basophils % (auto) 0.6 %; Eosinophils # (auto) 0.18 K/uL (0-0.5); Eosinophils % (auto) 3.5 %; Hematocrit (blood only) 39.7 % (37-47); Hemoglobin 13.2 g/dL (12.0-16.0); Immature Granulocytes # (auto) 0.01 K/uL (0.00-0.02); Immature Granulocytes % (auto) 0.2 %; Lymphocytes # (auto) 1.96 K/uL (1.2-3.4); Lymphocytes % (auto) 38.4 %; Mean Corpuscular Hemoglobin 29.9 pg (25-34); Mean Corpuscular Hgb Conc 33.2 g/dL (32-36); Mean Corpuscular Volume 89.8 fL (80-100); Mean Platelet Volume 9.7 fL (7.4-10.4); Monocytes # (auto) 0.39 K/uL (0.11-0.59); Monocytes % (auto) 7.6 %; Neutrophils # (auto) 2.54 K/uL (1.4-6.5); Neutrophils % (auto) 49.7 %; Platelet Count 210 K/uL (130-400); RDW Coefficient of Variation 13.4 % (11.5-14.5); RDW Standard Deviation 44.2 fL (36.4-46.3); Red Blood Count 4.42 M/uL (4.2-5.4); White Blood Count 5.11 K/uL (4.8-10.8)
[2021-07-21] MEDS ORDERED: LEVOTHYROXINE SODIUM 100 MCG TABLET PO SCH (06:30)
[2021-07-21 06:41] LABS: Alanine Aminotransferase 22 U/L (12-78); Albumin Level 3.4 gm/dl (3.4-5.0); Aspartate Aminotransferase 14 U/L (15-37); BUN Creatinine Ratio 20.4 (10-20); Blood Urea Nitrogen 17 mg/dl (7-18); Calcium 9.2 mg/dl (8.5-10.1); Carbon Dioxide 27 mmol/L (21-32); Chloride 109 mmol/L (98-107); Cholesterol 218 mg/dl (0-200); Creatinine Clr Calc Pharmacy 46.7 ml/min; Est GFR (African American) 75.7 ml/min; Est GFR (Non-African American) 65.3 ml/min; Glucose 99 mg/dl (70-99); Sodium 141 mmol/L (136-145); Triglycerides 143 mg/dl (0-150); VLDL Cholesterol 29 mg/dl
[2021-07-21 06:51] LABS: Albumin Globulin Ratio 0.9 (0.9-2); Alkaline Phosphatase 65 U/L (45-117); Bilirubin,Total 0.4 mg/dl (0.2-1); Chol HDL Ratio 4; Globulin 3.7 gm/dl (2.5-4.0); HDL Cholesterol 49 mg/dl; LDL Cholesterol Calculated 140 mg/dl; Total Protein 7.1 gm/dl (6.4-8.2); Troponin I < 0.015 ng/ml (0-0.045)
[2021-07-21 07:03] LABS: T4 Free Thyroxine 0.97 ng/dl (0.8-1.6)
--- NOTE | 2021-07-21 08:50 | Electrocardiogram Report ---
Test Reason : Blood Pressure : / mmHG Vent. Rate : 052 BPM Atrial Rate : 052 BPM P-R Int : 202 ms QRS Dur : 084 ms QT Int : 398 ms P-R-T Axes : 030 015 075 degrees QTc Int : 370 ms Sinus bradycardia Otherwise normal ECG When compared with ECG of 20-JUL-2021 17:07, Premature atrial complexes are no longer Present Nonspecific T wave abnormality no longer evident in Inferior leads QT has shortened Confirmed by Venkata Schaefer ([id number]) on 07/21/2021 8:49:55 AM Referred By: REFERRED SELF Confirmed By:Venkata Schaefer
[2021-07-21] MEDS ORDERED: ASPIRIN 81 MG ECTAB PO SCH (09:00)
[2021-07-21] MEDS ORDERED: amLODIPine BESYLATE 5 MG TAB PO SCH (09:00)
[2021-07-21] MEDS ORDERED: LOSARTAN POTASSIUM 25 MG TAB PO SCH (09:00)
[2021-07-21] MEDS ORDERED: CYANOCOBALAMIN 500 MCG TABLET (VITAMIN B-12) PO SCH (09:00)
[2021-07-21] MEDS ORDERED: CHOLECALCIFEROL 1,000 UNITS 25 MCG TAB PO SCH (09:00)
[2021-07-21] MEDS ORDERED: PANTOprazole 40 MG TAB PO SCH (09:00)
--- NOTE | 2021-07-21 11:15 | Cardiology Consultation ---
Date of Consultation July 21, 2021 Assessment & Plan (1) Chest pain: (2) Hypertension: (3) Dyslipidemia: (4) Hypothyroidism: We discussed her recent symptoms of chest pain in detail. Atypical in nature over the last few weeks, however the 30 min episode yesterday with radiation to her neck, worrisome for anginal equivalent. Troponin negative x3. No acute EKG changes. Echo without wall motion abnormalities. She is a very active 86 year old, and further ischemic work up is recommended given her symptoms and risk factors of HTN, dyslipidemia. Proceed with dobutamine stress echo to r/o inducible ischemia. She is agreeable to this plan. Her BP was elevated on arrival to hospital yesterday, but improved after admission on home meds. Low threshold to increase losartan if BP remains borderline elevated. Further recommendations pending review of stress test results. She reports a long history of statin intolerance. Will not initiate at this time. Would avoid AV elana blocking agents given sinus bradycardia on telemetry. Continue ASA, amlodipine, losartan for now. Case discussed with Dr. Smith. Will follow Supervising Physician Co-Signing Physician Notes Patient was seen and examined, chart, medications, telemetry reviewed. Assessment and plan as noted above patient with symptoms of atypical chest discomfort Patient was referred and underwent dobutamine stress echocardiography with study negative for ischemia with excellent echocardiographic images. Patient achieved greater than 100% age-predicted maximal heart rate without EKG or LV dysfunction Findings do not suggest cardiac source of patient complaints. Would suggest evaluation of symptoms/correlation with use of alendronate Continue GI prophylax History of Present Illness Reason for Consultation: Chest pain; hypertension; dyslipidemia Requesting Physician: Dr. Peres Attending Physician: Dr. Smith History of Present Illness Patient is an 86 year old female who has a history of hypertension, dyslipidemia (not treated due to statin intolerances), GERD, and hypothyroidism. She denies a history of cardiovascular issues. No prior diagnosis of CAD, MT, valvular heart disease, CHF, or history of arrhythmias. She had an exercise stress echo in 2018 which was negative for inducible ischemia with preserved LV systolic function. Over the last several weeks, patient has reported intermittent chest pain. Most episodes occurred randomly, while at rest or performing daily activities. Symptoms would last about 2 minutes and resolve spontaneously. Then yesterday, patient was driving her car and developed substernal chest pain, described as a pressure with radiation to her left neck. She denied SOB, diaphoresis. Symptoms lasted about 30 minutes. Due to intensity/severity and duration, she came to the ER for evaluation. Upon arrival to ER, her symptoms had improved. Her EKG demonstrated sinus bradycardia without acute changes. BP was borderline elevated. Troponin was n egative x3 since admission. Her echo revealed normal LV systolic funciton, without wall motion abnormalities and aortic sclerosis without stenosis and mild to moderate MR. At time of consult, patient resting in bed comfortably. She denies recurrent chest pain since admission. No SOB. No orthopnea, PND or edema. She admits to frequent GERD like symptoms but is adamant that this chest pain yesterday was "different than normal GERD". No fever, cough, chills. No palpitations or dizziness. She reports the last time she had similar symptoms was in 2018 when she had a stress test at that time and it was found she had high BP and medication was initiated. Her BP was elevated on arrival, improved overnight. Slightly high prior to AM meds. She then received her amlodipine and losartan. Allergies Allergy/AdvReac Type Severity Reaction Status Date / Time ergotamine Allergy Unknown VIOLENT Verified 07/20/21 18:26 HEADACHE Sulfa (Sulfonamide Allergy Unknown "SULFA" Verified 07/20/21 18:26 Antibiotics) ALLERGY REPORTED BY SDS/MTU Home Medications Medication Instructions Recorded Confirmed Type aspirin 81 mg tablet,delayed 81 mg PO DAILY 12/07/18 07/20/21 History release (Aspirin Low Dose) cholecalciferol (vitamin D3) 25 1,000 unit PO DAILY 12/07/18 07/20/21 History mcg (1,000 unit) capsule (Vitamin D3) famotidine 10 mg tablet 10 mg PO HS 12/07/18 07/20/21 History levothyroxine 100 mcg capsule 100 mcg PO DAILY 12/07/18 07/20/21 History losartan 25 mg tablet 25 mg PO DAILY 12/07/18 07/20/21 History alendronate 70 mg tablet 70 mg PO WK 07/20/21 07/20/21 History amlodipine 5 mg tablet 5 mg PO DAILY 07/20/21 07/20/21 History cyanocobalamin (vitamin B-12) 1,000 mcg PO DAILY 07/20/21 07/20/21 History 1,000 mcg tablet Patient History Medical History (Updated 07/21/21 @ 11:11 by Rita Bhatia PA-C) CKD (chronic kidney disease) stage 3, GFR 30-59 ml/min Dyslipidemia GERD (gastroesophageal reflux disease) Hypertension Hypothyroidism Osteoporosis Vitamin B12 deficiency Surgical History History of colonoscopy History of esophagogastroduodenoscopy (EGD) Family History Other No pertinent family history Social History Smoking Status: Never smoker Hx Alcohol Use: No Hx Substance Use: No Preferred Language: Armenian Communication Ability: Effective Hearing Ability: Normal Geriatric Psychiatrist Required: No Beliefs That Will Affect Care: None marital status: Current Living Situation: Spouse current occupational status: retired Other Information That Helps Us Care for You: No Feels Safe at Home: Yes Safety Concerns: Feels Safe At This Time Assistive Devices: None Review of Systems Review of Systems: All systems reviewed & are unremarkable except as noted in HPI & below Physical Exam Constitutional: WD/WN, vitals as above Eyes: PERRL, conjunctivae normal, anicteric sclerae Neck: trachea midline, no thyromegaly Respiratory: normal respiratory effort, lungs clear to auscultation Cardiovascular: Rate/Rhythm: regular rate and regular rhythm Heart Sounds: normal S1, normal S2 and + murmur (I/ systolic murmur LSB) Vessels: no JVD Extremities: no edema Gastrointestinal (Abdomen): normal bowel sounds, soft, nontender, no hepatosplenomegaly Skin: no rashes, warm and dry Neurologic: PERRL, EOMI, accommodation nl, no face palsy, no dysarthria Psychiatric: A+Ox3, euthymic affect Results & Data ([facility]) Vital Signs (Past 12 Hours) Vital Signs Temp Pulse Resp BP Pulse Ox 07/21/21 07:57 36.6 C 56 L 20 145/79 H 94 07/21/21 05:00 36.6 C 65 18 162/69 H 96 07/21/21 04:46 54 L 17 134/68 95 07/21/21 03:09 58 L 18 140/69 93 07/21/21 02:00 65 18 129/65 94 07/21/21 01:00 60 16 137/62 94 Laboratory Results 07/21/21 07/21/21 07/20/21 Range/Units 05:44 05:44 23:17 WBC 5.11 (4.8-10.8) K/uL RBC 4.42 (4.2-5.4) M/uL Hgb 13.2 (12.0-16.0) g/dL Hct 39.7 (37-47) % MCV 89.8 (80-100) fL MCH 29.9 (25-34) pg MCHC 33.2 (32-36) g/dL RDW Std Deviation 44.2 (36.4-46.3) fL RDW Coeff of Ramos 13.4 (11.5-14.5) % Plt Count 210 (130-400) K/uL MPV 9.7 (7.4-10.4) fL Immature Gran % (Auto) 0.2 % Neut % (Auto) 49.7 % Lymph % (Auto) 38.4 % [place] % (Auto) 7.6 % Eos % (Auto) 3.5 % Baso % (Auto) 0.6 % Neut # (Auto) 2.54 (1.4-6.5) K/uL Lymph # (Auto) 1.96 (1.2-3.4) K/uL [place] # (Auto) 0.39 (0.11-0.59) K/uL Eos # (Auto) 0.18 (0-0.5) K/uL Baso # (Auto) 0.03 (0-0.2) K/uL Immature Gran # (Auto) 0.01 (0.00-0.02) K/uL PT (9.0-12.0) Seconds INR (0.9-1.1) APTT (21.0-31.0) Seconds PTT Ratio Sodium 141 (136-145) mmol/L Potassium 4.0 (3.5-5.1) mmol/L Chloride 109 H (98-107) mmol/L Carbon Dioxide 27 (21-32) mmol/L Anion Gap 5.0 (3-11) BUN 17 (7-18) mg/dl Creatinine 0.81 (0.6-1.2) mg/dl Est Cr Clr Drug Dosing 46.7 ml/min Est GFR ( Amer) 75.7 ml/min Est GFR (Non-Af Amer) 65.3 ml/min BUN/Creatinine Ratio 20.4 H (10-20) Glucose 99 (70-99) mg/dl Calcium 9.2 (8.5-10.1) mg/dl Total Bilirubin 0.4 (0.2-1) mg/dl AST 14 L (15-37) U/L ALT 22 (12-78) U/L Alkaline Phosphatase 65 (45-117) U/L Troponin I < 0.015 < 0.015 (0-0.045) ng/ml Total Protein 7.1 (6.4-8.2) gm/dl Albumin 3.4 (3.4-5.0) gm/dl Globulin 3.7 (2.5-4.0) gm/dl Albumin/Globulin Ratio 0.9 (0.9-2) Triglycerides 143 (0-150) mg/dl Cholesterol 218 H (0-200) mg/dl LDL Cholesterol, Calc 140 mg/dl VLDL Cholesterol, Calc 29 mg/dl HDL Cholesterol 49 mg/dl Cholesterol/HDL Ratio 4 Lipase (73-393) U/L TSH 14.400 H (0.300-4.500) uIu/ml Free T4 0.97 (0.8-1.6) ng/dl SARS-CoV-2, RNA, NAAT (NEGATIVE) 07/20/21 07/20/21 07/20/21 Range/Units 17:21 17:21 17:21 WBC (4.8-10.8) K/uL RBC (4.2-5.4) M/uL Hgb (12.0-16.0) g/dL Hct (37-47) % MCV (80-100) fL MCH (25-34) pg MCHC (32-36) g/dL RDW Std Deviation (36.4-46.3) fL RDW Coeff of Ramos (11.5-14.5) % Plt Count (130-400) K/uL MPV (7.4-10.4) fL Immature Gran % (Auto) % Neut % (Auto) % Lymph % (Auto) % [place] % (Auto) % Eos % (Auto) % Baso % (Auto) % Neut # (Auto) (1.4-6.5) K/uL Lymph # (Auto) (1.2-3.4) K/uL [place] # (Auto) (0.11-0.59) K/uL Eos # (Auto) (0-0.5) K/uL Baso # (Auto) (0-0.2) K/uL Immature Gran # (Auto) (0.00-0.02) K/uL PT 9.6 (9.0-12.0) Seconds INR 0.9 (0.9-1.1) APTT 25.1 (21.0-31.0) Seconds PTT Ratio 1.0 Sodium 140 (136-145) mmol/L Potassium 4.0 (3.5-5.1) mmol/L Chloride 108 H (98-107) mmol/L Carbon Dioxide 24 (21-32) mmol/L Anion Gap 8.0 (3-11) BUN 21 H (7-18) mg/dl Creatinine 0.88 (0.6-1.2) mg/dl Est Cr Clr Drug Dosing 43.9 ml/min Est GFR ( Amer) 68.5 ml/min Est GFR (Non-Af Amer) 59.1 ml/min BUN/Creatinine Ratio 23.7 H (10-20) Glucose 95 (70-99) mg/dl Calcium 9.5 (8.5-10.1) mg/dl Total Bilirubin 0.5 (0.2-1) mg/dl AST 17 (15-37) U/L ALT 25 (12-78) U/L Alkaline Phosphatase 72 (45-117) U/L Troponin I < 0.015 (0-0.045) ng/ml Total Protein 7.5 (6.4-8.2) gm/dl Albumin 3.7 (3.4-5.0) gm/dl Globulin 3.8 (2.5-4.0) gm/dl Albumin/Globulin Ratio 1.0 (0.9-2) Triglycerides (0-150) mg/dl Cholesterol (0-200) mg/dl LDL Cholesterol, Calc mg/dl VLDL Cholesterol, Calc mg/dl HDL Cholesterol mg/dl Cholesterol/HDL Ratio Lipase 141 (73-393) U/L TSH (0.300-4.500) uIu/ml Free T4 (0.8-1.6) ng/dl SARS-CoV-2, RNA, NAAT NEGATIVE (NEGATIVE) 07/20/21 Range/Units 17:21 WBC 6.44 (4.8-10.8) K/uL RBC 4.36 (4.2-5.4) M/uL Hgb 13.0 (12.0-16.0) g/dL Hct 39.3 (37-47) % MCV 90.1 (80-100) fL MCH 29.8 (25-34) pg MCHC 33.1 (32-36) g/dL RDW Std Deviation 44.5 (36.4-46.3) fL RDW Coeff of Ramos 13.4 (11.5-14.5) % Plt Count 212 (130-400) K/uL MPV 9.4 (7.4-10.4) fL Immature Gran % (Auto) 0.0 % Neut % (Auto) 60.3 % Lymph % (Auto) 30.7 % [place] % (Auto) 6.7 % Eos % (Auto) 2.0 % Baso % (Auto) 0.3 % Neut # (Auto) 3.88 (1.4-6.5) K/uL Lymph # (Auto) 1.98 (1.2-3.4) K/uL [place] # (Auto) 0.43 (0.11-0.59) K/uL Eos # (Auto) 0.13 (0-0.5) K/uL Baso # (Auto) 0.02 (0-0.2) K/uL Immature Gran # (Auto) 0.00 (0.00-0.02) K/uL PT (9.0-12.0) Seconds INR (0.9-1.1) APTT (21.0-31.0) Seconds PTT Ratio Sodium (136-145) mmol/L Potassium (3.5-5.1) mmol/L Chloride (98-107) mmol/L Carbon Dioxide (21-32) mmol/L Anion Gap (3-11) BUN (7-18) mg/dl Creatinine (0.6-1.2) mg/dl Est Cr Clr Drug Dosing ml/min Est GFR ( Amer) ml/min Est GFR (Non-Af Amer) ml/min BUN/Creatinine Ratio (10-20) Glucose (70-99) mg/dl Calcium (8.5-10.1) mg/dl Total Bilirubin (0.2-1) mg/dl AST (15-37) U/L ALT (12-78) U/L Alkaline Phosphatase (45-117) U/L Troponin I (0-0.045) ng/ml Total Protein (6.4-8.2) gm/dl Albumin (3.4-5.0) gm/dl Globulin (2.5-4.0) gm/dl Albumin/Globulin Ratio (0.9-2) Triglycerides (0-150) mg/dl Cholesterol (0-200) mg/dl LDL Cholesterol, Calc mg/dl VLDL Cholesterol, Calc mg/dl HDL Cholesterol mg/dl Cholesterol/HDL Ratio Lipase (73-393) U/L TSH (0.300-4.500) uIu/ml Free T4 (0.8-1.6) ng/dl SARS-CoV-2, RNA, NAAT (NEGATIVE) Diagnostic Findings Telemetry reviewed - Sinus rubio in the 50's and NSR in the 60's. No pauses or concerning tachyarrhythmias. Rare ectopy. Echo report reviewed dated 07/21/21: Sinus bradycardia during the exam LV is normal in size Mild Concentric LVH LV wall motion is normal LV systolic function is normal. EF 60-65% Grade I diastolic dysfunction Aortic valve sclerosis mild, without significant aortic valvular stenosis. Mild to moderate MR Chest xray report reviewed - No active disease in the chest. Medications Administered Current Inpatient Medications Al Hydrox/Mg Hydrox/Simethicone (Aluminum/Magnesium/Simeth (Maalox Max) 30 Ml Udc) 15 ml PO Q6H PRN PRN Reason: Dyspepsia Stop: 08/19/21 21:19 Amlodipine Besylate (Amlodipine Besylate 5 Mg Tab) 5 mg PO DAILY TARA Stop: 08/20/21 08:59 Last Admin: 07/21/21 10:09 Dose: 5 mg Documented by: Aspirin (Aspirin 81 Mg Ectab) 81 mg PO DAILY TARA Stop: 08/20/21 08:59 Last Admin: 07/21/21 10:09 Dose: 81 mg Documented by: Cyanocobalamin (Cyanocobalamin 500 Mcg Tablet (Vitamin B-12)) 1,000 mcg PO DAILY TARA Stop: 08/20/21 08:59 Last Admin: 07/21/21 09:20 Dose: 1,000 mcg Documented by: Levothyroxine Sodium (Levothyroxine Sodium 100 Mcg Tablet) 100 mcg PO DAILYBB TARA Stop: 08/20/21 06:29 Last Admin: 07/21/21 09:20 Dose: 100 mcg Documented by: Losartan Potassium (Losartan Potassium 25 Mg Tab) 25 mg PO DAILY TARA Stop: 08/20/21 08:59 Last Admin: 07/21/21 09:19 Dose: 25 mg Documented by: Pantoprazole Sodium (Pantoprazole 40 Mg Tab) 40 mg PO QAM TARA Stop: 08/20/21 08:59 Vitamin D (Cholecalciferol 1,000 Units 25 Mcg Tab) 1,000 units PO DAILY TARA Stop: 08/20/21 08:59 Last Admin: 07/21/21 09:20 Dose: 1,000 units Documented by: (1) Chest pain Chest pain type: unspecified Qualified Code(s): R07.9 - Chest pain, unspecified
[2021-07-21] MEDS: ATROPINE SULFATE 0.1 MG/ML 10ML SYR IV ONE ×2 (11:37→13:33)
[2021-07-21] MEDS: METOPROLOL TARTRATE 1 MG/ML VIAL IV ONE ×2 (11:37→13:34)
[2021-07-21] MEDS: DOBUTamine HCL 12.5 MG/ML 20 ML VIAL IV ONE ×2 (11:37→13:34)
--- NOTE | 2021-07-21 14:33 | Hospitalist Progress Note ---
Date of Service July 21, 2021 Assessment & Plan (1) Chest pain: Plan: Atypical chest pain Troponin negative No acute EKG changes Echo without wall motion abnormality Dobutamine stress echo negative for ischemia Continue aspirin, losartan Avoid AV elana blocking agents given sinus bradycardia Appreciate cardiology input (2) GERD (gastroesophageal reflux disease): Plan: Recent increase in her acid reflux symptoms that has not been as responsive to famotidine as previous Alendronate likely worsening acid reflux Discontinue famotidine and start on pantoprazole 40 mg daily Consider following with gastroenterology as outpatient (3) CKD (chronic kidney disease) stage 3, GFR 30-59 ml/min: Plan: Monitor renal function (4) Dyslipidemia: Plan: Not currently on medication (5) Hypothyroidism: Plan: - Continue levothyroxine TSH is elevated, free T4 normal Advised the patient to increase levothyroxine to 125 mcg daily Advised to follow-up with PCP and get repeat thyroid function tests in 4 to 6 weeks. Patient preferred to follow-up with PCP before sending any new scripts. (6) Vitamin B12 deficiency: Plan: - Continue B12 supplement Plan: Code Status: Full Code DVT Prophylaxis: SCDs Admission and Anticipated Discharge Date Admission Date: July 20, 2021 Subjective Patient is seen and examined bedside States doing much better today Chest discomfort completely resolved Had stress test earlier today which was nonischemic Denies any nausea, vomiting, abdominal pain, dyspnea Eager to get discharge Review of Systems Review of Systems: All systems reviewed & are unremarkable except as noted in Subjective Physical Exam Physical Exam: Physical Exam: Vitals signs as noted above General Appearance:Moderately built and nourished, no apparent distress Head: normocephalic, Atraumatic Eyes: normal inspection, EOMI Neck: supple, Trachea midline Respiratory/Chest: Normal breath sounds, CTA Cardiovascular: S1, S2, No murmur Abdomen/GI:Soft, Non tender, Bowel sounds present Extremities/Musculoskeletal:normal inspection, no edema Neurologic/Psych:AAOX3, grossly no focal neurological deficits Skin: normal color, warm Results & Data Results & Data ([facility]) Vital Signs (Past 12 Hours) Vital Signs Temp Pulse Pulse Resp BP Pulse Ox 07/21/21 11:50 36.5 C 65 18 117/73 97 07/21/21 08:00 62 07/21/21 07:57 36.6 C 56 L 20 145/79 H 94 07/21/21 05:00 36.6 C 65 18 162/69 H 96 07/21/21 04:46 54 L 17 134/68 95 07/21/21 03:09 58 L 18 140/69 93 Laboratory Results Short CBC 07/20/21 07/21/21 Range/Units 17:21 05:44 WBC 6.44 5.11 (4.8-10.8) K/uL Hgb 13.0 13.2 (12.0-16.0) g/dL Hct 39.3 39.7 (37-47) % Plt Count 212 210 (130-400) K/uL BMP 07/20/21 07/21/21 17:21 05:44 Sodium 140 141 Potassium 4.0 4.0 Chloride 108 H 109 H Carbon Dioxide 24 27 BUN 21 H 17 Creatinine 0.88 0.81 Glucose 95 99 Calcium 9.5 9.2 Cardiac Enzymes 07/20/21 07/20/21 07/21/21 Range/Units 17:21 23:17 05:44 Troponin I < 0.015 < 0.015 < 0.015 (0-0.045) ng/ml Liver Function 07/20/21 07/21/21 Range/Units 17:21 05:44 Total Bilirubin 0.5 0.4 (0.2-1) mg/dl AST 17 14 L (15-37) U/L ALT 25 22 (12-78) U/L Alkaline Phosphatase 72 65 (45-117) U/L Albumin 3.7 3.4 (3.4-5.0) gm/dl (1) Chest pain Chest pain type: unspecified Qualified Code(s): R07.9 - Chest pain, unspecified
--- NOTE | 2021-07-21 16:22 | Discharge Summary ---
Date of Service July 21, 2021 Admission HPI Per Admitting Provider This is an 86 y/o female with a PMH of HTN, GERD, dyslipidemia, osteoporosis, hypothyroidism, and CKD3a who presents to the ED today with chest pain. Pt reports that she started about a week ago with occasional left-sided chest pain/discomfort - has been present intermittently since then. Not associated with eating. No specific activities triggered this. Pain may radiate to her jaw at times. Today, it came on when she was driving and was more severe. Pain was only lasting a few minutes at a time until today when it lasted at least 30 minutes. Mild associated diaphoresis. No associated SOB, N/V, dizziness. She did take aspirin prior to arrival, no nitro. The pain is similar to sensation that she had three years ago when she was diagnosed with HTN. Pt also notes that her GERD symptoms have been worse recently - uses pepcid at home but doesn't seem like it has been as effective recently. Was on pantoprazole for three years previously which helped but stopped it because she didn't know that she should continue it. Concerned about being on pantoprazole long-term. The pt reports that she did have a scope years ago - no PUD. She denies prior HI. Stress test in 2018 was unremarkable. Denies family history of known cardiac disease. Admission Exam Per Admitting Provider Physical Exam Constitutional: well developed and well nourished; no acute distress Eyes: + anicteric sclerae Neck: trachea midline Respiratory: no respiratory distress and no labored breathing Auscultation: lungs clear to auscultation bilaterally; no rales, no rhonchi and no wheezes Cardiovascular: Rate/Rhythm: regular rate and regular rhythm Vessels: dorsalis pedis pulses present and radial pulses present Extremities: no edema No chest wall tenderness to palpation Gastrointestinal (Abdomen): Inspection/Auscultation: normal bowel sounds; abdomen not distended Percussion/Palpation: abdomen soft; abdomen nontender Musculoskeletal: Head/Neck/Chest: normocephalic, head atraumatic and neck supple Skin: no rashes and no jaundice Neurologic: moves all extremities; no focal motor deficits Psychiatric: A+Ox3, euthymic affect Principal Diagnosis Atypical chest pain GERD Hypothyroidism Discharge Data Allergies Allergy/AdvReac Type Severity Reaction Status Date / Time ergotamine Allergy Unknown VIOLENT Verified 07/20/21 18:26 HEADACHE Sulfa (Sulfonamide Allergy Unknown "SULFA" Verified 07/20/21 18:26 Antibiotics) ALLERGY REPORTED BY SDS/MTU Consultations 07/20/21 18:12 ED Decision to Admit Stat 07/20/21 21:20 Consult Cardiology Routine Hospital Course (1) Chest pain: Atypical chest pain Troponin negative No acute EKG changes Echo without wall motion abnormality Dobutamine stress echo negative for ischemia Continue aspirin, losartan Avoid AV elana blocking agents given sinus bradycardia Appreciate cardiology input (2) GERD (gastroesophageal reflux disease): Recent increase in her acid reflux symptoms that has not been as responsive to famotidine as previous Alendronate likely worsening acid reflux Discontinue famotidine and start on pantoprazole 40 mg daily Consider following with gastroenterology as outpatient (3) CKD (chronic kidney disease) stage 3, GFR 30-59 ml/min: Monitor renal function (4) Dyslipidemia: Not currently on medication (5) Hypothyroidism: - Continue levothyroxine TSH is elevated, free T4 normal Advised the patient to increase levothyroxine to 125 mcg daily Advised to follow-up with PCP and get repeat thyroid function tests in 4 to 6 weeks. Patient preferred to follow-up with PCP before sending any new scripts. (6) Vitamin B12 deficiency: - Continue B12 supplement Code Status: Full Code DVT Prophylaxis: SCDs Total Time Total Time Spent Total Time Spent (In Minutes): 40 minutes Discharge Plan Discharge Items Patient Disposition: Home - Self-Care Reason For Visit: CHEST PAIN Discharge Diagnosis: Atypical chest pain GERD Activity: Resume your previous activity Exercise/Sports: Gradually increase as tolerated Non-emergency contact: Primary Care Provider Call non-emergency contact if: you have any medication questions, your symptoms worsen, your pain is concerning for you and you have a fever Follow-up/Referrals: Patricia Pennington MD [Primary Care Provider] - (Date & Time 07/26/2021 10:00 AM Provider Patricia Pennington MD Department General Internal Medicine [facility] ) Diet: Heart Healthy Addtl Attending Provider Instructions: Follow-up with your primary care physician on 07/26/2021 10:00 AM ---Discuss with your physician for possible alternatives for alendronate which could be contributing worsening of acid reflux/regurgitation. Seek immediate medical attention if your symptoms reoccur or worsen Please take all medications as instructed on discharge list below. Please call if you have any questions or problems. You can reach a [facility] hospitalist on duty at [facility] 24 hours a day by calling [phone] Pending Studies at Discharge: No Stand-Alone Forms: My [facility], Smoking Cessation Medications and DC Order Prescriptions: New pantoprazole 40 mg Tablet,Delayed Release (Dr/Ec) 40 mg PO QAM Qty: 30 RF: 0 Continued aspirin [Aspirin Low Dose] 81 mg Tablet,Delayed Release (Dr/Ec) 81 mg PO DAILY RF: 0 losartan 25 mg tablet 25 mg PO DAILY RF: 0 cholecalciferol (vitamin D3) [Vitamin D3] 1,000 unit Capsule 1,000 unit PO DAILY RF: 0 levothyroxine 100 mcg Capsule 100 mcg PO DAILY RF: 0 alendronate 70 mg tablet 70 mg PO WK RF: 0 cyanocobalamin (vitamin B-12) 1,000 mcg tablet 1,000 mcg PO DAILY RF: 0 amlodipine 5 mg tablet 5 mg PO DAILY RF: 0 Discontinued famotidine 10 mg Tablet 10 mg PO HS RF: 0 Discharge Orders: Discharge Order (Routine); Ordered 07/21/21 Ordered By: Donnie Peres Admission Data Admit Date/Time: 07/20/21 18:34 Attending Provider: Donnie Peres Admit Provider: Donnie Peres Primary Care Provider: Patricia Pennington Other Providers: Donnie Peres ; Andrez Smith Other Interventions: Discharge Summary Assessment (RN) Last Done: 07/21/21 15:02
--- NOTE | 2021-07-21 18:34 | Electrocardiogram Report ---
Test Reason : Blood Pressure : / mmHG Vent. Rate : 071 BPM Atrial Rate : 071 BPM P-R Int : 188 ms QRS Dur : 082 ms QT Int : 424 ms P-R-T Axes : 051 014 068 degrees QTc Int : 460 ms Sinus rhythm with Premature atrial complexes Diffuse Nonspecific ST and T wave abnormality Abnormal ECG When compared with ECG of 07-DEC-2018 08:24, Criteria for Inferior infarct are no longer Present Confirmed by Venkata Schaefer ([id number]) on 07/21/2021 6:33:47 PM Referred By: REFERRED SELF Confirmed By:Venkata Schaefer
== END 2021-07-21 15:03 | disposition home or self-care (01) ==
LOC: EDINP 16:58 → ED 16:58 → EDINP 21:22 → 2S 07-21 05:34